=== PATIENT | female | born 1985 | race African-American/Black ===

== ENCOUNTER 2019-03-28 11:45 | Emergency (ER) | payer OTHER, SELFPAY ==
[2019-03-28 12:07] VITALS: BP 148/63; PULSE 84; RESP 20; TEMP 36.6; O2SAT 100
--- NOTE | 2019-03-28 13:02 | ED.URI ---
HPI - URI/Sore Throat General Chief Complaint: Upper Respiratory Infection Stated Complaint: cough/whezzing/diarrhea Source: patient Mode of arrival: ambulatory Limitations: no limitations History of Present Illness HPI Narrative: Patient is a 33-year-old female who presents complaining of nonproductive cough, congestion, wheezing x1 week. 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 Patient denies fever or sore throat. Patient denies taking xubz-bbq-stnbhcu medications. MD elicited complaint: cough and nasal congestion Related Data Home Medications Medication Instructions Recorded Confirmed topiramate 100 mg DAILY 03/28/19 03/28/19 Allergies Allergy/AdvReac Type Severity Reaction Status Date / Time No Known Allergies Allergy Verified 03/28/19 12:11 Review of Systems Review of Systems: Narrative: CONSTITUTIONAL: Denies fever, chills, or sweats. EYES: Denies visual changes, redness, or discharge. ENT: Reports rhinorrhea, congestion, denies sore throat, or otalgia. CARDIOVASCULAR: Denies chest pain, palpitations, or edema. RESPIRATORY: Denies cough and wheezing, denies dyspnea. GASTROINTESTINAL: Denies abdominal pain, nausea, vomiting, or diarrhea. GENITOURINARY: Denies dysuria or hematuria. SKIN: Denies rash or itching. MUSCULOSKELETAL: Denies back pain, joint pain, or myalgia. NEUROLOGIC: Denies headache, numbness, dizziness, or weakness. PSYCHIATRIC: Denies anxiety or depression. [facility] Past Medical History Medical History (Updated 03/28/19 @ 13:08 by AMAN Billy) GERD (gastroesophageal reflux disease) HTN (hypertension) Surgical History Surgical History (Updated 03/28/19 @ 13:04 by AMAN Billy) H/O [facility] Social History Social History (Updated 03/28/19 @ 13:05 by AMAN Billy) Smoking status: Current every day smoker Tobacco type: cigarettes Alcohol intake: never Substance use: never Living arrangements: with family Occupation/Education: occupation Gender identity (if verbalized by the patient): Female Exam Narrative: Exam Narrative: GENERAL: Well-appearing, well-nourished, and in no acute distress. HEAD: Normocephalic, atraumatic. EYES: EOMI. No redness or drainage. Conjunctiva are normal. ENT: Mucous membranes pink and moist. Positive rhinorrhea. TMs normal bilaterally. Throat normal. Uvula midline. NECK: AROM. Supple. No lymphadenopathy. CHEST: No respiratory distress. Expiratory wheeze noted. HEART: Regular rate and rhythm. No murmur appreciated. Normal peripheral pulses. SKIN: Warm, dry, no rash. NEURO: No focal deficits. Alert and oriented x3. Gait steady. PSYCH: Normal affect. No signs of depression or anxiety. Course Vital Signs Vital signs: Vital Signs Temperature 36.6 C 03/28/19 12:07 Pulse Rate 84 03/28/19 12:07 Respiratory Rate 20 03/28/19 12:07 Blood Pressure 148/63 H 03/28/19 12:07 Pulse Oximetry 100 03/28/19 12:07 Temperature 36.6 C 03/28/19 12:07 Pulse Rate 84 03/28/19 12:07 Respiratory Rate 03/28/19 12:07 Blood Pressure 148/63 H 03/28/19 12:07 Pulse Oximetry 100 03/28/19 12:07 MDM - URI/Sore Throat MDM Narrative Medical decision making narrative: Discussed plan of care with patient. Patient appears to have a URI. Patient to be started on Tessalon for cough, pro-air for wheeze and a course of steroids. Patient agreeable with plan of care. Patient is stable for discharge home with outpatient follow-up as needed. Differential Diagnosis Differential diagnosis: Likely upper respiratory infection Critical Care Time Critical Care Time Critical Care Time: No Discharge Plan Discharge Clinical Impression: Upper respiratory infection, Bronchitis Patient Disposition: Home, Self-Care Condition: Stable Instructions: Upper Respiratory Infection (ED), Acute Bronchitis (ED) Prescriptions: New albuterol sulfate [ProAir HFA] 90 mcg/a
== END 2019-03-28 13:17 | disposition home or self-care (01) ==
PROVIDERS: Emergency Provider Nurse Practitioner
DX: J06.9 Acute upper respiratory infection, unspecified (principal); J40 Bronchitis, not specified as acute or chronic; K21.9 Gastro-esophageal reflux disease without esophagitis; I10 Essential (primary) hypertension; F17.210 Nicotine dependence, cigarettes, uncomplicated
CPT/HCPCS: 99203; G0463

== ENCOUNTER 2020-02-28 08:18 | Emergency (ER) | payer OTHER, SELFPAY ==
--- NOTE | 2020-02-28 08:28 | ED.GENADULT ---
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 Lay reports she was cutting meat at work and sliced a piece of her finger off. Denies focal weakness or altered sensation. Denies fever or chills. Denies numbness or tingling or loss of mobility. No foreign body sensation. RIGHT HAND dominant hand. Tetanus NOT up-to-date, will update today. The patient reports she have not been diagnosed with COVID-19. The patient reports she is not waiting for the results of a COVID-19 lab test. The patient reports she do not have weakness or fatigue. The patient reports she do not have a new or worsening cough or shortness of breath. Denies chest pain. The patient reports she do not have any rhinorrhea, congestion, sore throat, loss of taste, nausea, vomiting, abdominal pain, and diarrhea. Tolerating po intake well. Denies recent traveling. Denies concerns for COVID-19 or exposures been home with limited outdoor exposure except for essential household needs, work, and return home. At this time, patient is not suspected of having COVID-19. Some parts of this dictation were generated by voice recognition software and may contain typographical and/or grammatical inaccuracies Related Data Home Medications Medication Instructions Recorded Confirmed amlodipine 02/28/20 buspirone mg 02/28/20 ferrous sulfate mg 02/28/20 losartan 02/28/20 02/28/20 Allergies Allergy/AdvReac Type Severity Reaction Status Date / Time No Known Allergies Allergy Verified 03/28/19 12:11 Review of Systems Review of Systems: Narrative: CONSTITUTIONAL: Denies fever, chills, sweats. EYES: Denies visual changes, redness, discharge. ENT: Denies rhinorrhea, congestion, sore throat, otalgia. CARDIOVASCULAR: Denies chest pain, palpitations, edema. RESPIRATORY: Denies dyspnea, wheezing, cough. GASTROINTESTINAL: Denies abdominal pain, nausea, vomiting, or diarrhea. SKIN: Denies rash or itching. Complains of laceration to 2nd (index) finger on right hand. MUSCULOSKELETAL: Denies acute back pain, joint pain, or myalgia. NEUROLOGIC: Denies numbness or focal weakness. PSYCHIATRIC: Denies anxiety or depression. All other systems reviewed & are unremarkable except as noted in HPI and below. [facility] Past Medical History Medical History (Updated 02/29/20 @ 00:00 by Amol Ac) Anemia Anxiety GERD (gastroesophageal reflux disease) HTN (hypertension) Surgical History Surgical History H/O LEEP Family History Family History (Updated 02/28/20 @ 11:01 by AMAN Daly) Father , Lymphoma Lymphoma Mother , Related to kidney failure and CHF Diabetes mellitus Acute myocardial infarction Social History Social History (Updated 02/28/20 @ 11:02 by AMAN Daly) Smoking packs per day: 0.5 Smoking cigarettes per day: 10.0 Years smoked: 20 Smoking pack-years: 10.00 Smoking status: Current every day smoker Tobacco type: cigarettes Second hand tobacco smoke exposure: No Alcohol intake: never Substance use: never Living arrangements: alone Occupation/Education: occupation Gender identity (if verbalized by the patient): Female Sexual Orientation (if Verbalized by the Patient): Straight or Heterosexual Comments At time of signature, agree with nurse past medical, surgical, social, and family history. There is no relevant family history pertinent to the presenting complaint. Exam Narrative: Exam Narrative: GENERAL: This is a well-nourishe
[2020-02-28 08:36] VITALS: BP 153/113; PULSE 86; RESP 16; TEMP 36.7; O2SAT 100
[2020-02-28] MEDS: TETANUS,DIPHTHERIA,AC PERTUSSIS ADULT (0.5 ML) BOOSTRIX IM (08:45)
[2020-02-28 09:02] VITALS: BP 150/90
== END 2020-02-28 09:17 | disposition home or self-care (01) ==
PROVIDERS: Emergency Provider Nurse Practitioner Family; PCP Internal Medicine
DX: S61.210A Laceration without foreign body of right index finger without damage to nail, initial encounter (principal); W29.0XXA Contact with powered kitchen appliance, initial encounter; Y99.0 Civilian activity done for income or pay; Z23 Encounter for immunization; F17.210 Nicotine dependence, cigarettes, uncomplicated; F41.9 Anxiety disorder, unspecified; K21.9 Gastro-esophageal reflux disease without esophagitis; I10 Essential (primary) hypertension
CPT/HCPCS: 12001; 90471; 90715; 99213; G0463

== ENCOUNTER 2020-03-30 09:10 | Emergency (ER) | payer OTHER, SELFPAY ==
[2020-03-30 09:14] VITALS: BP 167/129; PULSE 83; RESP 16; TEMP 36.8; O2SAT 100
[2020-03-30 09:27] VITALS: BP 167/129; PULSE 83; RESP 16; TEMP 36.8; O2SAT 100
--- NOTE | 2020-03-30 09:53 | ED.URI ---
HPI - URI/Sore Throat General Chief Complaint: Upper Respiratory Infection Stated Complaint: COUGH Source: patient and RN notes reviewed Limitations: no limitations History of Present Illness HPI Narrative: The obese patient, who is a smoker / nondrinker on several meds, presents with cough. 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 She comments she has a couple day worsening at least a couple week history of intermittent cough. No fever, CP, known Covid exposure, S OB, sputum changes, calf pain / edema, loss of taste/smell, sneezing/wheezing- yet she says she can hear forced expiratory sounds sometimes w/ the cough. Upon arrival ancid-mi-edrt testing for Covid is negative, vital signs remarkable for diastolic hypertension; she comments she did not take her blood pressure pills today. She would like a refill of her amlodipine, inhaler. Related Data Home Medications Medication Instructions Recorded Confirmed amlodipine 02/28/20 buspirone mg 02/28/20 ferrous sulfate mg 02/28/20 losartan 02/28/20 02/28/20 albuterol sulfate INHALATION 03/30/20 guaifenesin mg 03/30/20 trazodone 03/30/20 Allergies Allergy/AdvReac Type Severity Reaction Status Date / Time No Known Allergies Allergy Verified 03/28/19 12:11 Review of Systems Review of Systems: Narrative: General/Constitutional: No weight loss,fever Eyes: N0: Redness,discharge Ears/Nose/Throat: No: Epistaxis,ear discharge Respiratory: Denies: Hemoptysis Gastrointestinal: No Vomiting, Bleeding-rectal Skin: No Lumps, eruption Neurologic: No Focal Weakness,Sz Hematologic: Denies: Petechiae/Purpura Psychiatric: No: Suicida ideationl All Other Systems: Reviewed and Negative [facility] Past Medical History Medical History (Updated 03/30/20 @ 17:50 by Hipolito Coy MD) Anemia Anxiety GERD (gastroesophageal reflux disease) HTN (hypertension) Surgical History Surgical History H/O LEEP Family History Family History (Updated 02/28/20 @ 11:01 by AMAN Daly) Father , Lymphoma Lymphoma Mother , Related to kidney failure and CHF Diabetes mellitus Acute myocardial infarction Social History Social History (Updated 02/28/20 @ 11:02 by AMAN Daly) Smoking packs per day: 0.5 Smoking cigarettes per day: 10.0 Years smoked: 20 Smoking pack-years: 10.00 Smoking status: Current every day smoker Tobacco type: cigarettes Second hand tobacco smoke exposure: No Alcohol intake: never Substance use: never Gender identity (if verbalized by the patient): Female Comments At time of signature, agree with nursing past medical, surgical, social and family history. There is no relevant family history pertinent to the presenting complaint Exam Narrative: Exam Narrative: General Appearance: Obese/well nourished, No distress EYE: PERRLA, Conjunctiva clear Ears: External ear normal Nose: Normal nose Mouth/Throat: Normal appearing, Normal lips Neck: Supple Respiratory: Airway patent, No respiratory distress, decreased BS at bases, no wheeze Cardiovascular: distant sounds RRR Abdomen: Soft, Non-tender, Musculoskeletal: Full ROM Skin: Warm, Dry Neurological: A&O x3, CN II-X intact Psychiatric: Normal mood, Normal affect Course Vital Signs Vital signs: Vital Signs Temperature 98.3 F 03/30/20 09:14 Pulse Rate 83 03/30/20 09:14 Respiratory Rate 16 03/30/20 09:14 Blood Pressure 167/129 H 03/30/20 09:14 Pulse Oximetry 100 03/30/20 09:14 Temperature 98.3 F 03/30/20 09:27 Pulse Rate 83 03/30/20 09:27 Respiratory Rate 16 03/30/20 09:27 Blood Pressure 188/131 H 03/30/20 10:15 Pulse Oximetry 100 03/30/20 09:27 MDM - URI/Sore Throat Lab Data Labs: Lab Results 03/30/20 Range/Units 09:24 POC SARS CoV-2 Ag Negative (Negative) Discharge Pl
[2020-03-30 10:15] VITALS: BP 188/131
== END 2020-03-30 10:17 | disposition home or self-care (01) ==
PROVIDERS: Emergency Provider Emergency Medicine; PCP Internal Medicine
DX: R05 Cough (principal); F17.210 Nicotine dependence, cigarettes, uncomplicated; I10 Essential (primary) hypertension; Z91.14 Patient's other noncompliance with medication regimen; Z20.822 Contact with and (suspected) exposure to COVID-19; K21.9 Gastro-esophageal reflux disease without esophagitis; F41.9 Anxiety disorder, unspecified; D64.9 Anemia, unspecified
CPT/HCPCS: 87426; 99213; C9803; G0463

== ENCOUNTER 2020-10-08 10:31 | Emergency (ER) | payer OTHER, SELFPAY ==
--- NOTE | 2020-10-08 10:34 | ED.URI ---
HPI - URI/Sore Throat General Chief Complaint: Upper Respiratory Infection Stated Complaint: CHILLS/COUGH/HOARSE Time Seen by Provider: 10/08/20 10:34 Source: patient and RN notes reviewed History of Present Illness HPI Narrative: Patient is a 35-year-old female who presents the urgent care with complaints of cough and hoarseness. Patient states that she got in a bad argument with someone approximately 2 to 3 weeks ago and was crying all night and that her voice has been hoarse since then. Patient states that she has been drinking warm tea to help with the hoarseness. States that she has had the cough for about 2 weeks as well. Patient states that she wants a rapid Covid test because her girlfriend just tested positive however patient does not report any new Covid symptoms. Patient denies of any nausea, vomiting, body aches, fever, chills or sweats. Patient has had a frequent and recent Covid positive contact. Denies of anyone in the home being sick. Patient is not vaccinated for Covid. No other acute complaints. No acute distress noted. Patient aware of the plan of care. Some parts of this dictation were generated by voice recognition software and may contain typographical and/or grammatical inaccuracies. Related Data Home Medications Medication Instructions Recorded Confirmed amlodipine 02/28/20 buspirone mg 02/28/20 ferrous sulfate mg 02/28/20 losartan 02/28/20 02/28/20 albuterol sulfate INHALATION 03/30/20 guaifenesin mg 03/30/20 trazodone 03/30/20 Allergies Allergy/AdvReac Type Severity Reaction Status Date / Time No Known Allergies Allergy Verified 03/28/19 12:11 Review of Systems Review of Systems: CONSTITUTIONAL: Denies fever, chills, or sweats. EYES: Denies visual changes, redness, or discharge. ENT: Denies rhinorrhea, congestion, sore throat, or otalgia. Reports of hoarseness CARDIOVASCULAR: Denies chest pain, palpitations, or edema. RESPIRATORY: Reports of nonproductive cough without dyspnea GASTROINTESTINAL: Denies abdominal pain, nausea, vomiting, or diarrhea. GENITOURINARY: Denies dysuria or hematuria. SKIN: Denies rash or itching. MUSCULOSKELETAL: Denies back pain, joint pain, or myalgia. NEUROLOGIC: Denies headache, numbness, or weakness. All other systems reviewed are negative, except as documented in HPI. [facility] Past Medical History Medical History (Updated 10/08/20 @ 10:53 by AMAN Fraire) Anemia Anxiety GERD (gastroesophageal reflux disease) HTN (hypertension) Surgical History Surgical History H/O LEEP Family History Family History (Updated 02/28/20 @ 11:01 by AMAN Daly) Father , Lymphoma Lymphoma Mother , Related to kidney failure and CHF Diabetes mellitus Acute myocardial infarction Social History Social History (Updated 02/28/20 @ 11:02 by AMAN Daly) Smoking packs per day: 0.5 Smoking cigarettes per day: 10.0 Years smoked: 20 Smoking pack-years: 10.00 Smoking status: Current every day smoker Tobacco type: cigarettes Second hand tobacco smoke exposure: No Alcohol intake: never Substance use: never Gender identity (if verbalized by the patient): Female Comments At the time of my signature, I reviewed and agree with the nursing past medical, surgical, social, and family history. There is no relevant family history pertinent to the patient complaint. Exam Narrative: GENERAL: This is a well-nourished, well-developed patient, morbidly obese HEAD: normocephalic, atraumatic. EYES: PERRL. Sclera clear/white. Vision is grossly intact. EARS: External ears normal, auditory canals clear and without drainage, TMs normal without perforation. Hearing grossly intact. NOSE: External nose normal with no obvious nasal discharge, nares without redness, no rhinorrhea. THROAT: Mucous membranes moist, posterior pharynx clear. Moderate er
[2020-10-08 10:44] VITALS: BP 160/109; PULSE 95; RESP 16; TEMP 36.3; O2SAT 100
[2020-10-08 10:45] VITALS: BP 160/109; PULSE 95; RESP 16; TEMP 36.3; O2SAT 100
[2020-10-10 01:36] LABS: SARS-CoV-2 RNA PCR Negative
== END 2020-10-08 11:05 | disposition home or self-care (01) ==
PROVIDERS: Emergency Provider Nurse Practitioner Family; PCP Internal Medicine
DX: Z20.822 Contact with and (suspected) exposure to COVID-19 (principal); F17.210 Nicotine dependence, cigarettes, uncomplicated; K21.9 Gastro-esophageal reflux disease without esophagitis; I10 Essential (primary) hypertension
CPT/HCPCS: 99213; C9803; G0463; U0003; U0005

== ENCOUNTER 2020-11-21 10:48 | Emergency (ER) | payer OTHER, SELFPAY ==
--- NOTE | 2020-11-21 10:54 | ED.FEMALEGU ---
HPI - Female Genitourinary General Chief complaint: Urogenital-Female Stated complaint: POS UTI Time Seen by Provider: 11/21/20 10:54 Source: patient and RN notes reviewed History of Present Illness HPI Narrative: Patient is a 35-year-old female who presents the urgent care with complaints of urinary frequency for the last week and a half. Patient states that a couple months or weeks ago she was prescribed Macrobid for a UTI and never picked it up . Patient states that she now has a little bit of nausea and diarrhea. Patient reports of wanting a Covid swab while she is here . Patient denies of any fevers. Denies of any use of udoi-ero-hiqnvga medication for her symptoms. No acute distress noted. Patient aware of the plan of care. Some parts of this dictation were generated by voice recognition software and may contain typographical and/or grammatical inaccuracies. Related Data Home Medications Medication Instructions Recorded Confirmed amlodipine 02/28/20 buspirone mg 02/28/20 ferrous sulfate mg 02/28/20 losartan 02/28/20 02/28/20 albuterol sulfate INHALATION 03/30/20 guaifenesin mg 03/30/20 trazodone 03/30/20 Allergies Allergy/AdvReac Type Severity Reaction Status Date / Time No Known Allergies Allergy Verified 11/21/20 11:11 Review of Systems Review of Systems: CONSTITUTIONAL: Denies fever, chills, or sweats. EYES: Denies visual changes, redness, or discharge. ENT: Denies rhinorrhea, congestion, sore throat, or otalgia. CARDIOVASCULAR: Denies chest pain, palpitations, or edema. RESPIRATORY: Denies cough or dyspnea. GASTROINTESTINAL: Denies abdominal pain, nausea, vomiting, or diarrhea. GENITOURINARY: Reports of urinary frequency SKIN: Denies rash or itching. MUSCULOSKELETAL: Denies back pain, joint pain, or myalgia. NEUROLOGIC: Denies headache, numbness, or weakness. All other systems reviewed are negative, except as documented in HPI. [facility] Past Medical History Medical History (Updated 11/21/20 @ 11:31 by AMAN Fraire) Anemia Anxiety GERD (gastroesophageal reflux disease) HTN (hypertension) Surgical History Surgical History H/O LEEP Family History Family History (Updated 02/28/20 @ 11:01 by AMAN Daly) Father , Lymphoma Lymphoma Mother , Related to kidney failure and CHF Diabetes mellitus Acute myocardial infarction Social History Social History (Updated 02/28/20 @ 11:02 by AMAN Daly) Smoking packs per day: 0.5 Smoking cigarettes per day: 10.0 Years smoked: 20 Smoking pack-years: 10.00 Smoking status: Current every day smoker Tobacco type: cigarettes Second hand tobacco smoke exposure: No Alcohol intake: never Substance use: never Gender identity (if verbalized by the patient): Female Sexual Orientation (if Verbalized by the Patient): Straight or Heterosexual Comments At the time of my signature, I reviewed and agree with the nursing past medical, surgical, social, and family history. There is no relevant family history pertinent to the patient complaint. Exam Narrative: GENERAL: This is a well-nourished, well-developed patient, in no apparent distress. HEAD: normocephalic, atraumatic. EYES: PERRL. Sclera clear/white. Vision is grossly intact. EARS: External ears normal NOSE: External nose normal with no obvious nasal discharge, nares without redness, no rhinorrhea. THROAT: Mucous membranes moist NECK: Neck supple CARDIOVASCULAR: Regular rate and rhythm without murmurs, gallops, or rubs. RESPIRATORY: Clear to auscultation. Breath sounds equal bilaterally. No wheezes, rales, or rhonchi. GASTROINTESTINAL: Abdomen soft, non-tender, nondistended. SKIN: warm, intact with no suspicious lesions or rash, good texture and turgor. NEURO: awake, alert, and oriented to person, place and time. There were no obvious focal neurologic abnormali
[2020-11-21 11:13] VITALS: BP 163/107; PULSE 100; RESP 18; TEMP 36.6; O2SAT 100
== END 2020-11-21 11:48 | disposition home or self-care (01) ==
PROVIDERS: Emergency Provider Nurse Practitioner Family; PCP Internal Medicine
DX: N39.0 Urinary tract infection, site not specified (principal); Z20.822 Contact with and (suspected) exposure to COVID-19; F17.210 Nicotine dependence, cigarettes, uncomplicated; D64.9 Anemia, unspecified; K21.9 Gastro-esophageal reflux disease without esophagitis; I10 Essential (primary) hypertension
CPT/HCPCS: 81003; 87086; 87088; 99213; G0463

== ENCOUNTER 2022-03-06 12:33 | Outpatient (CLI) | payer OTHER, SELFPAY ==
--- NOTE | 2022-03-06 | ECHO_ITS ---
Patient Info Name: Lay Seay Age: 36 years : 1985 Gender: Female Ht: 67 in Wt: 360 lbs BSA: 2.88 m2 HR: 71 bpm BP: 163 / 113 mmHg Technical Quality: Poor Exam Date: 03/06/2022 1:04 PM Exam Location: [facility] Patient Status: Outpatient Admit Date: 03/06/2022 Staff Ordering Physician: Minh Donohue MD Laser Print Operator: Renate Arthur RCS Attending Provider: Minh Donohue MD Referring Physician: Charanjit BROWN; Exam Type: CA echo doppler color flow Study Info Indications - DYSPNEA Complete two-dimensional, color flow and Doppler transthoracic echocardiogram is performed. Reason for Poor Study: patient body habitus Summary 1. Complete two-dimensional, color flow and Doppler transthoracic echocardiogram is performed. 2. Left ventricular chamber dimension is normal. 3. Left ventricular systolic function is normal, estimated at 60-65%. 4. There is mildly increased left ventricular wall thickness. 5. The left ventricular diastolic function is grade I diastolic dysfunction. 6. E/e' 7 is not elevated. 7. Mild pulmonary hypertension, estimated pulmonary arterial systolic pressure is 40 mmHg. Left Ventricle E/e' 7 is not elevated. Left ventricular chamber dimension is normal. Left ventricular systolic function is normal, estimated at 60-65%. There is mildly increased left ventricular wall thickness. The left ventricular diastolic function is grade I diastolic dysfunction. Right Ventricle Right ventricular chamber dimension is normal. Right ventricular systolic function is normal. Left Atria Left atrial chamber dimension is normal. Right Atria Right atrial chamber dimension is normal. Aortic Valve The aortic valve is probable trileaflet. There is no aortic valve stenosis. There is no aortic valve regurgitation. Pulmonic Valve There is no pulmonic regurgitation. Mitral Valve There is no mitral valve stenosis. There is no mitral valve regurgitation. Tricuspid Valve There is no tricuspid valve regurgitation. Mild pulmonary hypertension, estimated pulmonary arterial systolic pressure is 40 mmHg. Pericardium/Pleural There is no pericardial effusion. Inferior Vena Cava Normal inferior vena cava with >50% collapse upon inspiration consistent with normal right atrial pressure, 5 mmHg. Aorta The aortic root size at the sinus of Valsalva is normal. Left Ventricular Outflow Tract Name Value Normal LVOT 2D LVOT Diameter 2.1 cm LVOT Doppler LVOT Peak Gradient 5 mmHg LVOT Mean Gradient 3 mmHg LVOT VTI 20 cm LVOT VTI/AV VTI Ratio 0.9 LVOT Stroke Volume 72 ml LVOT CO 17.3 l/min LVOT CI 6.0 l/min/m2 Pulmonic Valve Name Value Normal PV Doppler
--- NOTE | 2022-03-06 16:42 | WPDPFTINT ---
PFT Procedure Performed PFT Procedure Performed Plethysmography (Lung Vol) Diffusing Cap (DLCO) Flow Vol Loop Spirometry w/o Bronchodil PFT Interpretation This is a pulmonary function test with spirometry, plethysmography and diffusing capacity. The test was performed and results interpreted in accordance with the 2019 and 2005 ATS/ERS Task Force guidelines respectively using the Global Lung Function Initiative-2012 reference equations. Patient demonstrated good effort and cooperation. Reproducibility criteria were met. The quality of the spirometry maneuver was Grade B. Findings: Spirometry: There is decreased maximal expiratory airflow at all lung volumes. The FVC is 3.02 L, 85% predicted. The FEV1 is 2.03 L, 69% predicted. The FEV1: FVC ratio 67%. Plethysmography: The total lung capacity is 5.51 L, 114% predicted. The functional residual capacity is 2.56 L, 90% predicted. The residual volume is 2.49 L, 162% predicted. Diffusing capacity: The diffusing capacity unadjusted for hemoglobin and carboxyhemoglobin is 25.4, 99% predicted. The diffusing capacity adjusted for alveolar volume is 6.02, 129% predicted. Impression: There is a moderate obstructive abnormality. The increase in residual volume is consistent with air trapping from an obstructive abnormality. The diffusing capacity unadjusted for hemoglobin is normal and is increased when adjusted for alveolar volume. There are no prior studies for comparison
== END 2022-03-06 12:34 | disposition home or self-care (01) ==
LOC: ANHCARD 12:34
PROVIDERS: PCP Internal Medicine; Visit Provider Internal Medicine
DX: R06.00 Dyspnea, unspecified (principal); I27.20 Pulmonary hypertension, unspecified
CPT/HCPCS: 93306; 94375; 94726; 94729

== ENCOUNTER 2023-04-09 16:09 | Outpatient (CLI) | payer OTHER, SELFPAY ==
--- NOTE | ~2023-04-09 | XR_ITS ---
EXAM: XR_[id number]_CR, XR_KNEE1-2VLT_CR DATE: 04/09/2023 16:29 HISTORY: KNEE PAIN, UNSPECIFIED . COMPARISON: None available. FINDINGS: Normal mineralization. No fracture or dislocation. No lytic or blastic lesion. Moderate bi lateral medial joint space narrowing. Bilateral tricompartmental osteophytosis, moderate-severe in th e left knee and mild in the right knee. Small bilateral knee joint fluid collections. No erosion or p eriosteal change. Soft tissues within normal limits. IMPRESSION: Bilateral knee tricompartmental osteoarthritis, moderate-severe in the left knee and mode rate in the medial compartment of the right knee. Small bilateral knee joint effusions. Reviewed, dictated and finalized at location K. DING MACHINE OPERATOR IMPRESSION: Bilateral knee tricompartmental osteoarthritis, moderate-severe in the left knee and moderate in the medial compartment of the right knee. Small b ilateral knee joint effusions.
== END 2023-04-09 16:10 | disposition home or self-care (01) ==
LOC: ANHIMG 16:13
PROVIDERS: PCP Internal Medicine; Visit Provider Internal Medicine
DX: M17.0 Bilateral primary osteoarthritis of knee (principal)
CPT/HCPCS: 73560

== ENCOUNTER 2023-08-24 11:39 | Emergency (ER) | payer OTHER, SELFPAY ==
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
[2023-08-24 11:44] VITALS: BP 122/74; PULSE 98; RESP 16; TEMP 36.4; O2SAT 100
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
== END 2023-08-25 02:58 | disposition home or self-care (01) ==
PROVIDERS: Emergency Provider Emergency Medicine; PCP Internal Medicine
DX: S39.012A Strain of muscle, fascia and tendon of lower back, initial encounter (principal); S16.1XXA Strain of muscle, fascia and tendon at neck level, initial encounter; I10 Essential (primary) hypertension; K21.9 Gastro-esophageal reflux disease without esophagitis; F41.9 Anxiety disorder, unspecified; F17.210 Nicotine dependence, cigarettes, uncomplicated; Z79.899 Other long term (current) drug therapy; V43.62XA Car passenger injured in collision with other type car in traffic accident, initial encounter
CPT/HCPCS: 72125; 72131; 81025; 99284

== ENCOUNTER 2023-09-17 09:07 | Outpatient (CLI) | payer OTHER, SELFPAY ==
--- NOTE | 2023-09-17 | ECG_ITS ---
Test Date: 2023-09-17 10:26:37 Measurements Intervals [place] Rate: 66 P: 34 DC: 164 QRS: 25 QRSD: 98 T: 31 QT: 404 QTc: 425 Interpretive Statements SINUS RHYTHM WITH OCCASIONAL VENTRICULAR PREMATURE COMPLEXES LOW QRS VOLTAGE IN PRECORDIAL LEADS BORDERLINE ECG No previous ECG available for comparison Electronically Signed On 09-17-2023 11:06:31 CDT by Elio Zheng D.O.
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
[2023-09-17 10:17] LABS: Basophils Absolute Auto 0.1 K/mm3 (0.0-0.1); Basophils Percent Auto 0.7 % (0.2-1.2); Eosinophils Absolute Auto 0.2 K/mm3 (0-0.3); Eosinophils Percent Auto 1.9 % (0-4.4); Hematocrit 42.7 % (37.0-47.0); Hemoglobin 13.1 g/dL (12.0-15.0); Immature Granulocyte Absolute 0.02 K/mm3 (0.00-0.031); Immature Granulocyte Percent A 0.2 % (0-0.5); Lymphocytes Absolute Auto 2.31 K/mm3 (0.9-3.2); Lymphocytes Percent Auto 27.4 % (18.3-44.2); Mean Corpuscular HGB Conc 30.7 g/dl (32-36); Mean Corpuscular Hemoglobin 25.6 pg (26-34); Mean Corpuscular Volume 83.6 fl (80-100); Monocytes Absolute Auto 0.6 K/mm3 (0.1-0.6); Monocytes Percent Auto 6.5 % (2.6-8.5); Neutrophils Absolute Auto 5.3 K/mm3 (1.3-6.7); Neutrophils Percent Auto 63.3 % (45.5-73.1); Platelet Count Result 234 k/mm3 (150-375); Red Blood Count 5.11 M/mm3 (4.2-5.4); White Blood Count 8.4 K/mm3 (4.5-10.0)
[2023-09-17 10:26] LABS: INR 0.9; Prothrombin Time 12.7 Seconds (11.1-14.7)
[2023-09-17 10:27] LABS: Partial Thromboplastin Time 29.4 Seconds (22.3-36.8)
[2023-09-17 10:33] LABS: Alanine Aminotransferase 17 U/L (6-35); Albumin Level 4.8 g/dL (3.5-5.1); Alkaline Phosphatase 60 U/L (38-126); Anion Gap 12 mmol/L (4-12); Aspartate Amino Transferase 20 U/L (14-36); Bilirubin,Total 0.6 mg/dL (0.2-1.3); Blood Urea Nitrogen 21 mg/dL (7-17); Calcium 9.6 mg/dL (8.4-10.2); Carbon Dioxide 25 mmol/L (22-30); Chloride 101 mmol/L (98-107); Cholesterol 204 mg/dL (0-200); Estimated Glomerular Filt Rate > 60; Glucose 84 mg/dL (65-110); HDL Direct 75 mg/dL; Magnesium 1.9 mg/dL (1.6-2.3); Potassium 3.1 mmol/L (3.4-5.0); Sodium 138 mmol/L (137-145); Triglycerides 105 mg/dL (<150)
[2023-09-17 10:44] LABS: LDL Cholesterol Direct 79 mg/dL; Parathyroid Intact 61.4 pg/mL (7.5-53.5)
[2023-09-17 11:04] LABS: Thyroid Stimulating Hormone 0.696 uIU/mL (0.465-4.680)
[2023-09-17 11:12] LABS: Iron 97 ug/dL (37-170)
[2023-09-17 11:18] LABS: Hemoglobin A1C 5.5 % (<5.7)
[2023-09-17 11:21] LABS: Vitamin D 25 Hydroxy 37.2 ng/mL
[2023-09-17 11:28] LABS: Percent Iron Saturation 28 % (20-50)
[2023-09-17 11:39] LABS: Folic Acid > 20.0 ng/mL (2.76->20)
[2023-09-17 11:56] LABS: Ferritin 8.56 ng/mL (6.24-137)
[2023-09-19 13:04] LABS: Vitamin B1 13 nmol/L (8-30)
== END 2023-09-17 09:08 | disposition home or self-care (01) ==
PROVIDERS: PCP Internal Medicine
DX: E66.01 Morbid (severe) obesity due to excess calories (principal); Z01.818 Encounter for other preprocedural examination; R94.31 Abnormal electrocardiogram [ECG] [EKG]
CPT/HCPCS: 36415; 71046; 80053; 80061; 82306; 82607; 82728; 82746; 83036; 83540; 83550; 83735; 83970; 84425; 84443; 85025; 85610; 85730; 93005

== ENCOUNTER 2023-09-24 14:04 | Emergency (ER) | payer OTHER, SELFPAY ==
[2023-09-24 14:27] VITALS: BP 141/87; PULSE 78; RESP 18; TEMP 36.3; O2SAT 99
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
[2023-09-24 17:17] VITALS: BP 143/99; PULSE 80; RESP 15; TEMP 36.8; O2SAT 99
== END 2023-09-24 17:19 | disposition home or self-care (01) ==
PROVIDERS: Emergency Provider Emergency Medicine; PCP Internal Medicine
DX: S01.511A Laceration without foreign body of lip, initial encounter (principal); S00.83XA Contusion of other part of head, initial encounter; S02.5XXA Fracture of tooth (traumatic), initial encounter for closed fracture; F17.210 Nicotine dependence, cigarettes, uncomplicated; D64.9 Anemia, unspecified; F41.9 Anxiety disorder, unspecified; K21.9 Gastro-esophageal reflux disease without esophagitis; I10 Essential (primary) hypertension; W20.8XXA Other cause of strike by thrown, projected or falling object, initial encounter
CPT/HCPCS: 12011; 99282

== ENCOUNTER 2023-10-06 07:56 | Outpatient (CLI) | payer OTHER, SELFPAY ==
[2023-10-12 08:29] LABS: Reference Lab Test Name Nicotine Metab
== END 2023-10-06 07:57 | disposition home or self-care (01) ==
PROVIDERS: PCP Internal Medicine; Visit Provider Nurse Practitioner Family
DX: Z87.891 Personal history of nicotine dependence (principal)
CPT/HCPCS: 36415

== ENCOUNTER 2023-10-09 08:11 | Outpatient (CLI) | payer OTHER, SELFPAY ==
[2023-10-09 09:12] LABS: Alveolar/Arterial O2 Gradient 15.9 mmHg; Base Excess ABG -0.4 mEq/l (+/-2.0); Carboxyhemoglobin 0.5 % THb (0-2.0); Fractional Inspired Oxygen 21 %; HCO3 ABG 22.9 mEq/l (22.0-26.0); Methemoglobin ABG 0.3 %THb (0-1.5); Oxygen Content ABG 16.7 %vol (16.0-22.0); Oxygen Saturation ABG 97.6 % (95.0-100.0); Oxyhemoglobin 96.7 % THb (90.0-100.0); PCO2 ABG 33.3 mmHg (35.0-45.0); PO2 FiO2 Ratio Arterial Blood 4.48 %; Reduced Hemoglobin 2.5 %THb (0-5.0); Total Hemoglobin 12.2 g/dL (12.0-18.0); pH ABG 7.456 (7.350-7.450)
[2023-10-09 09:13] LABS: Device ROOM AIR; Modified Allen's Test Pass; Site Drawn RIGHT BRACHIAL
--- NOTE | 2023-10-09 11:57 | PCRCNOTE ---
GILLIAN FAXED TO ORDERING DOC.
== END 2023-10-09 08:12 | disposition home or self-care (01) ==
PROVIDERS: PCP Internal Medicine
DX: G47.30 Sleep apnea, unspecified (principal)
CPT/HCPCS: 36600; 82375; 82805; 83050

== ENCOUNTER 2023-10-10 08:29 | Outpatient (CLI) | payer OTHER, SELFPAY ==
--- NOTE | 2023-10-11 13:20 | P.PCNPFT_ITS ---
PFT Procedure Performed PFT Procedure Performed Plethysmography (Lung Vol) Diffusing Cap (DLCO) Flow Vol Loop Spirometry w/o Bronchodil PFT Interpretation DOS: 10/10/2023 REQUESTING: Crystal Hernandez APRN REASON FOR TESTING: Sleep apnea PULMONARY FUNCTION TESTS Repeatability of spirometry FEV1 maneuver is Grade B. Spirometry: The pre-bronchodilator FEV1 is 2.11 L, 73% predicted, below normal. The pre-bronchodilator FVC is 3.18 L, 90% predicted, normal. The FEV1/FVC ratio is 66%, decreased, consistent with airflow obstruction. No bronchodilator was administered. Lung volumes: The total lung capacity is 6.14 L, 127% predicted, increased consistent with hyperinflation. The residual volume is 2.50 L, 159% predicted, increased, consistent with air trapping. The RV/TLC is 41%, upper limit of normal. Diffusion: DLCO is 22.4, 88%, normal. The DLCO/VA is 5.87, 126%, normal. Flow volume loop: The flow volume loop is normal. IMPRESSION: This study shows a mild to moderate obstructive ventilatory impairment, hyperinflation, air trapping with normal diffusion. No bronchodila tor was administered. A prior PFT from 03/06/2022 shows similar results for spirometry. The previous FEV1 was 2.03 L, and currently it is 2.11 L. The patient has hyperinflation which is new. Air trapping is still present. Diffusing capacity is normal. New hyperinflation suggests progression of her obstructive lung disease. Shea Campos MD
== END 2023-10-10 08:30 | disposition home or self-care (01) ==
LOC: ANHPFT 08:30
PROVIDERS: PCP Internal Medicine; Visit Provider Nurse Practitioner Family
DX: G47.30 Sleep apnea, unspecified (principal); R94.2 Abnormal results of pulmonary function studies
CPT/HCPCS: 94375; 94726; 94729

== ENCOUNTER 2023-11-01 08:50 | Outpatient (CLI) | payer OTHER, SELFPAY ==
[2023-11-05 07:33] LABS: Reference Lab Test Name Nicotine and Metab
== END 2023-11-01 08:51 | disposition home or self-care (01) ==
LOC: ANHLAB 08:55
PROVIDERS: PCP Internal Medicine; Visit Provider Nurse Practitioner Family
DX: Z12.2 Encounter for screening for malignant neoplasm of respiratory organs (principal); Z87.891 Personal history of nicotine dependence
CPT/HCPCS: 36415

== ENCOUNTER 2023-11-13 07:39 | Outpatient (CLI) | payer OTHER, SELFPAY ==
--- NOTE | ~2023-11-13 | NM_ITS ---
EXAMINATION: NM noelle stress w perfusion DATE: 11/13/2023 10:04 INDICATION: Encounter for cardiovascular examination. TECHNIQUE: Rest images were obtained following intravenous administration of 10.9 mCi Tc99m tetrofosm in (Myoview). The patient was infused intravenously with Lexiscan (regadenoson). Then, 32.4 mCi Tc99m tetrofosmin (Myoview) was administered intravenously, and supine and prone stress images were obtain ed. Data was reconstructed into short axis and horizontal and vertical long axis SPECT images. Gated SPECT images were also obtained. COMPARISON: None. FINDINGS: There is no definite reversible or fixed perfusion abnormality to suggest ischemia or infar ction. There is no segmental wall motion abnormality. Left ventricular ejection fraction measures > 70%. IMPRESSION: 1. No definite ischemia or infarct. 2. Normal left ventricular ejection fraction measuring >70%. Reviewed, dictated and finalized at location A.
--- NOTE | 2023-11-13 07:59 | EST_ITS ---
Patient Info Name: Lay Seay Age: 38 years : 1985 Gender: Female Ht: 67 in Wt: 374 lbs BSA: 2.94 m2 HR: 65 bpm BP: 119 / 89 mmHg Exam Date: 11/13/2023 8:55 AM Exam Location: [facility] Patient Status: Outpatient Admit Date: 11/13/2023 Staff Ordering Physician: Elio Zheng DO Attending Provider: Elio Zheng DO Exercise Technologist: Alice Watts CT Exercise Physician: Elio Zheng DO Exam Type: CA stress noelle w NM Study Info A regadenoson stress test was performed. Summary 1. 1. Negative lexiscan stress test for ischemic ST changes by ECG criteria. 2. 2. Stable hemodynamics throughout the test. 3. 3. Nuclear scan to follow and will be reported separately. Please correlate with it. 4. 4. Patient informed of the above results. Protocol: Lexiscan Stress ECG Details Stage: REST Duration (min): 1 min : 6 sec HR (bpm): 66 SBP (mmHg): 119 DBP (mmHg): 89 Stage: REST Duration (min): 7 min : 0 sec HR (bpm): 68 SBP (mmHg): 119 DBP (mmHg): 89 Stage: STAGE 1 Duration (min): 1 min : 0 sec HR (bpm): 93 SBP (mmHg): 124 DBP (mmHg): 90 Stage: RECOVERY Duration (min): 1 min : 0 sec HR (bpm): 92 SBP (mmHg): 124 DBP (mmHg): 90 Stage: RECOVERY Duration (min): 2 min : 0 sec HR (bpm): 88 SBP (mmHg): 124 DBP (mmHg): 90 Stage: RECOVERY Duration (min): 3 min : 0 sec HR (bpm): 85 SBP (mmHg): 113 DBP (mmHg): 88 Stage: RECOVERY Duration (min): 3 min : 39 sec HR (bpm): 83 SBP (mmHg): 113 DBP (mmHg): 88 Rest HR: 68 bpm Peak HR: 93 bpm Rest Sys BP: 119 mmHg Peak Sys BP: 124 mmHg Max Pred HR: 182 bpm % Max Pred HR: 51 % Target HR: 155 bpm Max RPP: 11,532 bpm*mmHg Termination Reason: Completed protocol Cardiac Symptoms: Shortness of breath Total Time: 1 min : 0 sec Rest Saavedra BP: 89 mmHg Peak Saavedra BP: 90 mmHg Total Dose: 0.4 mg Resting ECG Sinus rhythm. Stress ECG No ST changes. Arrhythmias None. Report Signatures
== END 2023-11-13 07:40 | disposition home or self-care (01) ==
PROVIDERS: PCP Internal Medicine; Visit Provider Internal Medicine Cardiovascular Disease
DX: Z01.810 Encounter for preprocedural cardiovascular examination (principal)
CPT/HCPCS: 78452; 93017; A9502; J2785

== ENCOUNTER 2023-12-15 09:04 | Outpatient (CLI) | payer OTHER, SELFPAY | END 2023-12-15 09:05 | disposition home or self-care (01) | LOC: ANHLAB 09:08 | PROVIDERS: PCP Internal Medicine; Visit Provider Nurse Practitioner Family | DX: Z87.891 Personal history of nicotine dependence (principal) | CPT/HCPCS: 36415 ==

== ENCOUNTER 2024-06-10 07:28 | Outpatient (CLI) | payer OTHER, SELFPAY ==
--- OUTSIDE RECORDS SUMMARY | 2024-06-10 07:33 | XMS_ITS | Clinical Summary ---
Author Organization [facility] Address [address] [address] Care Team Providers Care Police Artist Name Role Phone Minh Donohue MD Primary Care Provider [phone] Source Comments [facility],non-owned Affiliates and Associated Physician Practices is amultiple site organization consisting of ambulatory clinics and hospital sitesin [place], [place], [place] and [place]. This disclosure is being madepursuant to the Care Everywhere program and may not contain all information available regarding this patient. Last updated 17.[facility] Allergies No known active allergies Medications * Be aware that medications may not be up to date on this document. Alwaysverify current medications with the patient. albuterol HFA (Proventil; Ventolin; Proair) 108 (90 Base) MCG/ACT inhaler 4 Active vitamin D, ergocalciferol, (Drisdol) 1.25 MG (96355 UT) capsule Take 1 (one) capsule by mouth every 7 days 4 Active hydrOXYzine pamoate (Vistaril) 50 MG capsule 3 Active topiramate (Topamax) 100 MG tablet Take 1 (one) tablet by mouth at bedtime 4 Active prazosin (Minipress) 2 MG capsule Take 1 (one) capsule by mouth 3 times daily 4 Active multivitamin daily (One A Day) tablet Take 1 (one) tablet by mouth once daily Baratric with iron 4 Active busPIRone (Buspar) 30 MG tablet Take 1 (one) tablet by mouth once daily 4 Active acetaminophen (TYLENOL) 500 MG tabletIndicatio ns:Bariatric surgery status Pt is to take 2 tabs po every 8 hours for basal pain. May take additional 1 tab twice daily if needed. Pt to not exceed 4000mg daily. 40 tablet 4 Active Calcium Citrate-Vitamin D (CALCIUM CITRATE + D PO) Take 600 mg by mouth 2 times daily Active omeprazole (PriLOSEC) 40 MG capsuleIndicati ons:Bariatric surgery status Take 1 (one) capsule by mouth daily before breakfast 30 capsule 3 5 025 Active docusate sodium (Colace) 100 MG capsuleIndicati ons:Bariatric surgery status Take 1 (one) capsule by mouth 2 times daily 60 capsule 3 5 Active FeroSul 325 (65 Fe) MG tablet 4 025 Discontin ued(List Clean-Up) losartan (Cozaar) 100 MG tablet as needed 4 025 Discontin ued(List Clean-Up) amLODIPine (Norvasc) 10 MG tablet as needed 4 025 Discontin ued(List Clean-Up) Probiotic Product (Yuanfen~Flow™) capsuleIndicati ons:Bariatric surgery status Take 1 (one) capsule by mouth once daily 30 capsule 3 4 025 Discontin ued(List Clean-Up) omeprazole (PriLOSEC) 40 MG capsuleIndicati ons:Bariatric surgery status Take 1 (one) capsule by mouth daily before breakfast 30 capsule 3 4 025 Discontin ued(Reord er) docusate sodium (Colace) 100 MG capsuleIndicati ons:Bariatric surgery status Take 1 (one) capsule by mouth 2 times daily 30 capsule 4 025 Discontin ued(Reord er) ursodiol (Actigall) 300 MG capsuleIndicati ons:Post op laproscopic sleeve gastrectomy Take 1 (one) capsule by mouth 2 times daily for 90 days Do Not start until 1 week post op. Reasons: Post op laproscopic sleeve gastrectomy 60 capsule 2 4 025 Discontin ued(Tx Complete) Blood Pressure Monitor MISC Use 1 Each once daily Check your blood pressure daily before taking your blood pressure medication Keep a log of your readings Do not take your blood pressure medicine if your reading is less than 120/80 5 025 Discontin ued(List Clean-Up) chlorhexidine (Peridex) 0.12 % solution RINSE AND SPIT 15ML BY MOUTH FOR 30 SECONDS EVERY 12 HOURS FOR 7 DAYS 5 025 Discontin ued(Tx Complete) Active Problems Problem Noted Date Diagnosed Date Morbid obesity 03/04/2024 Hiatal hernia 03/04/2024 Sleep apnea 09/04/2023 High blood pressure 09/04/2023 Acid reflux disease 09/04/2023 Joint pain 09/04/2023 Encounters Date Type Department Care Team Description 06/09/2024 9:00 AM CDT Video Visit [facility] [address] [place] [address] Rabia Roberts, FARM MACHINERY MECHANIC-PULLER OVER Status post laparoscopic sleeve gastrectomy 06/09/2024 8:00 AM CDT Video Visit [facility] [address] [place] [phone] Rabia Roberts, FARM MACHINERY MECHANIC-PULLER OVER Morbid obesity (HCC) ; Status post laparoscopic sleeve gastrectomy; Bariatric surgery status 04/10/2024 1:00 PM FRONT OFFICE AGENT Video Visit [facility] [address] [place] [address] April Rendon APRN-PULLER OVER Status post laparoscopic sleeve gastrectomy ; Morbid obesity with BMI of 50.0-59.9, adult 04/08/2024 11:30 AM FRONT OFFICE AGENT Clinical Support [facility] [address] [place] [phone] Status post laparoscopic sleeve gastrectomy 03/18/2024 9:45 AM FRONT OFFICE AGENT Video Visit [facility] [address] [place] [phone] Status post laparoscopic sleeve gastrectomy 03/13/2024 8:15 AM FRONT OFFICE AGENT Video Visit [facility] [address] [place] [phone] Carolin Avalos MD Status post laparoscopic sleeve gastrectomy from Last 3 Months Family History Medical History Relation Name Comments Lymphoma Father Diabetes; unknown type Mother Heart Failure Mother Relation Name Status Comments Father Mother Social History Tobacco Use Types Packs/Day Years Used Date Smoking Tobacco: Former Cigarettes Q uit: 09/03/2023 Smokeless Tobacco: Never Tobacco Cessation:Counseling Given: Not Answered Alcohol Use Standard Drinks/Week Comments Not Currently 0 (1 standard drink = 0.6 oz pur e alcohol) clean for 1 year AUDIT-C Answer Date Recorded Q1: How often do you have a drink containing alcohol? Never 03/04/2024 Q2: How many drinks containi ng alcohol do you have on a typical day when you are drinking? Patient does not drink Q3: How often do you have si x or more drinks on one occasion? Never 03/04/2024 PHQ-2 Answer Date Recorded Patient Health Questionnaire-2 Score 0 06/09/2024 Comments Unknown Sex and Gender Information Value Date Recorded Sex Assigned at Not on file Legal Sex Female 10:03 AM FRONT OFFICE AGENT Gender Identity Not on file Sexual Orientation Not on file Last Filed Vital Signs Vital Sign Reading Time Taken Comments Blood Pressure 157/83 03/05/2024 12:36 PM FRONT OFFICE AGENT Pulse 91 03/05/2024 12:36 PM FRONT OFFICE AGENT Temperature 37.1 C (98.8 F) 03/05/2024 12:36 PM FRONT OFFICE AGENT Respiratory Rate 17 03/05/2024 12:34 PM FRONT OFFICE AGENT Oxygen Saturation 99% 03/05/2024 8:05 AM FRONT OFFICE AGENT Inhaled Oxygen Concentration - - Weight 145.2 kg (320 lb) 06/09/2024 8:00 AM CDT Height 170.2 cm (5' 7.01 ) 06/09/2024 8:00 AM CD T Body Mass Index 50.11 06/09/2024 8:00 AM CDT Plan of Treatment Upcoming Encounters Date Type Department Care Team (Late st Contact Info) Description 09/04/2024 11:00 AM CDT Video Visit [facility] [address] [place] [phone] 09/04/2024 11:30 AM CDT Video Visit [facility] [address] [place] [phone] April Rendon APRN-KAMILLA [address] [place] [address] 03/06/2025 11:00 AM FRONT OFFICE AGENT Clinical Support [facility] [address] [place] [phone] 03/06/2025 11:30 AM FRONT OFFICE AGENT Office Visit [facility] [address] [place] [phone] Rabia Roberts, FARM MACHINERY MECHANIC-PULLER OVER [address] [place], [place] [address] Health Maintenance Due Date Last Done Comments PAP SMEAR 1985 HIV SCREENING 2000 HEPATITIS C SCREENING 05/04/2003 DTAP/TDAP/TD VACCINES (1 - Tdap) 2004 HEPATITIS B VACCINE (1 of 3 - 19+ 3-dose series) 2004 COVID-19 VACCINE ( - 2023-2 5 season) 2023 INFLUENZA VACCINE (Season Ended) 2024 ZOSTER VACCINE (1 of 2) 05/09/2035 DEPRESSION SCREENING Completed 03/13/2024, 09/13/2023 HIB VACCINE Aged Out No longer eligi ble based on patient's age to complete this topic HPV VACCINE Aged Out No longer eligi ble based on patient's age to complete this topic MENINGOCOCCAL (Group B) VACCINE SHARED DECISION-MAKING Aged Out No longer eligible based on patient's age to complete this topic MENINGOCOCCAL GROUPS A/C/Y/W VACCINE Aged Out No longer eligible b ased on patient's age to complete this topic PNEUMOCOCCAL VACCINE Aged Out No long er eligible based on patient's age to complete this topic Medical Devices Implanted Type Area Edge Finisher Device Identifier Shelf Expiration Date Model / Serial / Lot Kit Tissue Clsr Duo Tssl 1 Prefl Syr Implanted:Qty : 1 on 03/04/2024 by Carolin Avalos MD at [facility] 08/18/2025 [id number] / / [id number] Insurance * Guarantor: Geena Lay Account Type Relation to Patient Date of Phone Billing Address Personal/Family Self [address] * Guarantor: Lay Seay Account Type Relation to Patient Date of Phone Billing Address Personal/Family Self [address] Advance Directives * Full Code (Latest Code Status on File) Date Activated Date Inactivated Comments 03/04/2024 4:18 PM 03/05/2024 3:57 PM Care Teams Police Artist Relationship Specialty Start Date End Date Minh Donohue MD [address] [place] [phone] PCP - General Internal Medicine 09/13/23
--- OUTSIDE RECORDS SUMMARY | 2024-06-10 07:33 | XMS_ITS | Encounter Summary ---
Author Organization [facility] Address [address] [place] [address] Care Team Providers Care Manager Planning Name Role Phone Minh Donohue MD Primary Care Provider Reason for Visit * Reason Comments Bariatric Surgery Follow-up Encounter Details Date Type Department Care Team (Late st Contact Info) Description 06/09/2024 8:00 AM CDT Video Visit [facility] [address] [place] [address] Rabia Roberts, CULINARY MANAGER-CLOTH CUTTER [address] [place], [place] [id number] Morbid obesity (HCC) ; Status post laparoscopic sleeve gastrectomy; Bariatric surgery status Social History Tobacco Use Types Packs/Day Years Used Date Smoking Tobacco: Former Cigarettes Q uit: 09/03/2023 Smokeless Tobacco: Never Alcohol Use Standard Drinks/Week Comments Not Currently [...] on file 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 Answer Date of Assessment Author No 03/05/2024 2:07 PM Simeon Mc RN * Is person blind or have serious difficulty seeing? Answer Date of Assessment Author No 03/05/2024 2:07 PM Simeon Mc RN * Does person have serious difficulty walking/climbing stairs? Answer Date of Assessment Author No 03/05/2024 2:07 PM Simeon Mc RN * Does person have difficulty dressing/bathing? Answer Date of Assessment Author No 03/05/2024 2:07 PM Simeon Mc RN * Does person have difficulty doing errands alone? Answer Date of Assessment Author No 03/05/2024 2:07 PM Simeon Mc RN * Over the past 2 weeks, how often have you been bothered by any of the following problems? Question Answer Date of Assessment Author Little interest or pleasure in doing things Not at all 06/09/2024 7:56 AM Elza Hendrickson RN Feeling down, depressed, or hopeless Not at all 06/09/2024 7:56 AM JDT Karolina Nichols RN Patient Health Questionnaire-2 Score 0 06/09/2024 7:56 AM Timothy Hendrickson RN documented as of this encounter Mental Status * Does person have difficulty concentrating/remembering/making decisions? Answer Entry Date Author No 03/05/2024 2:07 PM Simeon Mc RN documented in this encounter Progress Notes * Rabia Roberts, CULINARY MANAGER-CLOTH CUTTER - 06/09/2024 7:47 AM CDT [facility] [place] [address] . . Date of encounter: 06/09/2024 Pt Name: Lay Seay : 1985 AGE: [age] year old SEX: female CSN: [id number] Visit type: Weight Management Follow Up Patients Primary care provider is : Minh Donohue MD Patient Verification & Telemedicine Based Consent I am proceeding with this evaluation at the direct request of the patient. I have verified this is the correct patient and have obtained verbal consent from the patient/surrogate to perform this voluntary telemedicine encounter evaluation. I have explained risks (including potential loss of confiden tiality), benefits, alternatives, and the potential need for subsequent face to face care. Patient/surrogate understands that there is a risk of medical inaccuracies given that our recommendations will be made based on reported data. Knowing that there is a risk that this information is not reported accurately, and that the telemedicine audio, or data feed may be incomplete, the patient agrees toproceed with evaluation and holds us harmless knowing these risks. In this evaluation, we will be providing recommendations only. The patient/surrogate has been notified that other healthcare professionals (including students, residents and technical personnel) may be involved in this audio evaluation. All laws concerning confidentiality and patient access to medical records and copies of medicalrecords apply to telemedicine. I have reviewed this above verification and consent paragraph with the patient/surrogate. Subjective: Lay Seay presents to the clinic 3 months following sleeve gastrectomy. she was seen in clinic last on 04/10/2024. Patient is taking 30-60 grams of proteins supplements daily. Patient is taking 64 oz of fluid per day. Doing 45 minutes of exercise daily. Patient is taking Bariatric multivitamins. Patient is having Reflux, not smoking, vaping, or using NSAID. Bowel movement are Normal. Has the patient been readmitted to the hospital since the last follow up ? No Has the patient had any post bariatric surgical operations or interventions performed since the last follow up? No Weight History: Initial Weight: 378.0 lb. BMI 59.19 Date: 09/13/2023 10/03/2023 Weight: (!) 170.9 kg (376 lb 11.2 oz) BMI (Calculated): 58.99 Total Wt Loss in lb: 1.3 lb 10/31/2023 Weight: (!) 170.6 kg (376 lb) (per pt) BMI (Calculated): 58.88 Weight Loss since last visit in lbs : 0.7 lb Total Wt Loss in lb: 2 lb 12/18/2023 Weight: (!) 171.3 kg (377 lb 9.6 oz) BMI (Calculated): 59.13 Weight Loss since last visit in lbs : +1.6 lb Total Wt Loss in lb: 0.4 lb 01/14/2024 Weight: (!) 171.6 kg (378 lb 6.4 oz) BMI (Calculated): 59.25 Weight Loss since last visit in lbs : +0.8 lb Total Wt Loss in lb: +0.4 lb 02/05/2024 Weight: (!) 171.6 kg (378 lb 3.2 oz) BMI (Calculated): 59.22 Weight Loss since last visit in lbs : 0.2 lb Total Wt Loss in lb: -0.2 lb 03/13/2024 Weight: (!) 165.1 kg (363 lb 14.4 oz) BMI (Calculated): 56.98 Weight Loss since last visit in lbs : 14.3 lb Total Wt Loss in lb: 14.1 lb 04/10/2024 Weight: (!) 156.5 kg (345 lb) BMI (Calculated): 54.02 Weight Loss since last visit in lbs: 18.9 lb Total Wt Loss in lb: 33 lb 06/04/2024 Weight: (!) 147.9 kg (326 lb) (per pt) BMI (Calculated): 51.05 Weight Loss since last visit in lbs : 19 lb Total Wt Loss in lb: 52 lb 06/09/2024 Weight: (!) 145.2 kg (320 lb) (per pt) BMI (Calculated): 50.11 Weight Loss since last visit in lbs : 25 lb Total Wt Loss in lb: 58 lb BSTOP Questions- 1 mo Post-Op Date: 04/10/2024 1. Did you receive any refills on the opioid pain medication prescribed to you after discharge? No 2. Did you dispose of unused pain medication at an appropriate facility or drop- off? Yes BSTOP Questions - 1 wk Post-Op Date: 03/13/24 How many tablets of opioid pain medication were given to you at discharge?5 Refills? How many tablets of opioid pain medication did you take after discharge? no = none MME Are you still taking the opioid pain medication prescribed to you at discharge? no What is your pain currently on the pain scale? 0 / 10 Obesity History Years of being overweight? 25 Age of first weight loss attempt? 18 Highest weight as an adult? 386 Goal Weight? 200 BMI: Body mass index is 50.12 kg/m??. Past Medical History[1] Past Surgical History[2] Social history: Social History Socioeconomic History Marital status: Single Spouse name: Not on file Number of children: Not on file Years of education: Not on file Highest education level: Not on file Occupational History Not on file Tobacco Use Smoking status: Former Current packs/day: 0.00 Types: Cigarettes Quit date: 09/03/2023 Years since quittin.7 Smokeless tobacco: Never Vaping Use Vaping status: Former Substance and Sexual Activity Alcohol use: Not Currently Comment: clean for 1 year Drug use: Not Currently Comment: clean for 1 year Sexual activity: Not on file Other Topics Concern Not on file Social History Narrative Not on file Social Drivers of Health Financial Resource Strain: Not on file Food Insecurity: Not on file Transportation Needs: Not on file Stress: Not on file Housing Stability: Not on file Family History: Family History[3] Medications: Medications[4] Medications[5] Allergy: Allergies[6] ROS: A comprehensive review of systems was negative except as described in HPI. Objective: Ht 1.702 m (5' 7 ) Wt (!) 145.2 kg (320 lb) Comment: per pt Weight: (!) 145.2 kg (320 lb) (per pt) Height: 170.2 cm (5' 7 ) Body mass index is 50.12 kg/m??. Unable to complete physical assessment due to telemedicine visit. Constitutional: Alert, awake and oriented without any apparent discomfort. Eyes: Neck Exam: Respiratory: Cardiovascular: Abdomen: Skin: Extremities: Neurological: Psychiatric: The patient's mood and affect appeared to be appropriate Labs Recent Labs Component Name 01/1552103/04/24 1529 WBC 10.5 12.4* RBC 4.54 4.52 HGB 11.8* 11.6* HCT 37.2 36.3 PLTCOUNT 228 266 Recent Labs Component Name 03/05/2422 03/04/24 1529 SODIUM 135* 141 POTASSIUM 3.7 3.8 CO2 16* 21* BUN 7.5* 11.0 CREATININE 0.71 1.06 Recent Labs Component Name 03/05/2452103/04/24 1529 GLUCOSE 97 122 Recent Labs Component Name 03/05/2452103/04/24 1529 AST 33 33 ALT 29 32 No results for input(s): LDL , HDL , TRIG , TSH in the last 90843 hours. Recent Labs Component Name 03/05/2422 09/17/23 0000 HGBA1C 5.1 5.5 No results for input(s): PT , PTT , INR , TSH in the last 33346 hours. No results for input(s): TSH in the last 46758 hours. No results for input(s): IRON in the last 49816 hours. No results for input(s): [id number] in the last 25530 hours. No results for input(s): VITAMINA in the last 84422 hours. No results for input(s): IRON in the last 66133 hours. No results for input(s): VITK1 in the last 89468 hours. No results for input(s): [id number] in the last 92494 hours. No results for input(s): ALPHATOCOPH in the last 97129 hours. No results for input(s): GAMMATOCOPH in the last 29541 hours. No results for input(s): MAGMGDL in the last 00206 hours. Recent Labs Component Name 03/05/24 0522 PHOS 2.8 Some lab results will be in paper format so may be scanned in the EMR. Imaging studies No results found. Some Imaging studies results will be in paper format so may be scanned in the EMR. Assessment and Plan Morbid Obesity : Change in weight as noted in the weight history above. Total weight loss since starting the program:58 pounds Current BMI Body mass index is 50.12 kg/m??. with weight of Weight: (!) 145.2 kg (320 lb)(per pt) . Surgery : s/p: Sleeve Gastrectomy with hiatal hernia . Date of surgery 03/04/2024. @ [facility], by Dr. Avalos Patient was recommended to take about 60-80 g of protein per day, and get involved in an exercise plan. The patient is also recommended to attend support group meetings.I also explained to her that she should take 2 adult multivitamin tablets, and 1500 mg of calcium citrate, starting 2 weeks after surgery. Patient was made aware of the nutrition deficiency should she fail to take supplementation. Doing well postoperatively. May discontinue Colon Health, and Actigall. May use fiber supplementation like Bene fiber 1-2 teaspoon twice daily in the protein supplementation to prevent constipation. Prevention Patient has been advised that during the first 18-24 months after bariatric surgery , she should refrain from becoming . The body is healing with many changes and it is difficult to sustain two lives when losing weight after bariatric surgery. She has been instructed of the importance of control methods to avoid . Her current control method is abstinence. Should she become , she is advised to contact the [facility] Team The patient verbalizes understanding of all information provided and denies any further questions. History of GERD/hiatal hernia Prior to surgery patient was taking Prilosec 40 mg daily. She was found to have a hiatal hernia on her preop EGD. She underwent hiatal hernia repair at the time of sleeve gastrectomy. She reports some reflux symptoms even with drinking water at times. Will continue PPI until 6 months postop. Hypertension Prior to surgery, patient was taking amlodipine 10 mg daily, Cozaar 100 mg daily. Her blood pressure at home today was 106/77 she is no longer on blood pressure medications. Night terrors Continue prazosin 6 mg t.i.d. as needed. Continue follow-up with primary care physician. Sleep apnea Patient had a sleep study which showed sleep apnea. Weight loss could help with resolving this condition as well. Patient was encouraged to utilize CPAP/ BiPAP as pre recommended settings. Anxiety/PTSD Patient is currently taking Buspar, hydroxyzine, prazosin, and topiramate for this. Continue medications as prescribed. Continue follow up with PCP/psych. Joint pain Due to being overweight and having overburdened her lower extremity joints she is developing arthritis. She was reminded to avoid NSAIDS following bariatric surgery. History of Smoking addiction Patient reports she quit smoking 09/03/23. She quit vaping 08/04/23. History of substance abuse Patient has history of cocaine, meth, and marijuana use. She is 19 months clean of this. Random drug screen completed and negative 12/18/2023. I counseled the patient on continuing Behavior and Lifestyle Modifications : Eat 1-2 small meals daily and protein supplementation. Recommended to take about 60-80 g of protein per day. Eliminate high caloric beverages. Do not graze between meals. Portion control, measuring portions, showed portion control plates. Choosing low sugar, high protein items. Reducing stress and emotional eating. Incorporating fruits and vegetables in moderation. Taking 20 minutes to eat a meal. Patient was instructed to keep a food journal. Patient was counseled on the need for routine exercise plan, at least 10 minutes per day. Labs ordered: Routine Vitamin and Lab check. Plan : as above recommendation. Follow up with: Surgeons / PA/ INSTRUCTIONAL COORDINATOR : 3 months.PRN Dietitian: as scheduled. The patient has given verbal consent to have today's visit conducted by this same means with treatment provided remotely. The patient verbally consents to the billing and collection practices of [facility]. Patient location: Work This encounter was performed using: audio and video Time spent with patient/proxy: 31 minutes The plan was reviewed with the patient and the patient confirmed understanding of the plan and all follow-up steps. Patient is agreeable with this plan after shared decision making with patient. All aspects of patient's medical history were reviewed and updated as documented in Epic. Rabia Roberts, CULINARY MANAGER-CLOTH CUTTER [1] Past Medical History: Diagnosis Date Anxiety GERD (gastroesophageal reflux disease) High blood pressure Joint pain Sleep apnea [2] Past Surgical History: Procedure Laterality Date Cervical LEEP 2016 ENDOSCOPY, UPPER N/A 12/12/2023 N/A; ESOPHAGOGASTRODUODENOSCOPY WITH BIOPSY Gastrectomy N/A 03/04/2024 N/A; LAPAROSCOPIC SLEEVE GASTRECTOMY WITH HIATAL HERNIA REPAIR AND POSSIBLE EGD [3] Family History Problem Relation Name Age of Onset Diabetes; unknown type Mother Heart Failure Mother Lymphoma Father [4] Outpatient Medications Marked as Taking for the 06/09/24 encounter (Video Visit) with Rabia Roberts APRN-CNP Medication Sig acetaminophen (TYLENOL) 500 MG tablet Pt is to take 2 tabs po every 8 hours for basal pain. May take additional 1 tab twice daily if needed. Pt to not exceed 4000mg daily. albuterol HFA (Proventil; Ventolin; Proair) 108 (90 Base) MCG/ACT inhaler busPIRone (Buspar) 30 MG tablet Take 1 (one) tablet by mouth once daily Calcium Citrate-Vitamin D (CALCIUM CITRATE + D PO) Take 600 mg by mouth 2 times daily docusate sodium (Colace) 100 MG capsule Take 1 (one) capsule by mouth 2 times daily hydrOXYzine pamoate (Vistaril) 50 MG capsule multivitamin daily (One A Day) tablet Take 1 (one) tablet by mouth once daily Baratric with iron prazosin (Minipress) 2 MG capsule Take 1 (one) capsule by mouth 3 times daily topiramate (Topamax) 100 MG tablet Take 1 (one) tablet by mouth at bedtime vitamin D, ergocalciferol, (Drisdol) 1.25 MG (94568 UT) capsule Take 1 (one) capsule by mouth every7 days [5] (Not in a hospital admission) [6] No Known Allergies Cosigned by Carolin Avalos MD at 06/09/2024 12:13 PM CDT documented in this encounter Plan of Treatment Upcoming Encounters Date Type Department Care Team (Late st Contact Info) Description 09/04/2024 11:00 AM CDT Video Visit [facility] [address] [place] [phone] 09/04/2024 11:30 AM CDT Video Visit [facility] [address] [place] [phone] April Rendon APRN-CLOTH CUTTER [address] [place] [address] 03/06/2025 11:00 AM LASER OPERATOR Clinical Support [facility] [address] [place] [address] 03/06/2025 11:30 AM LASER OPERATOR Office Visit [facility] [address] [place] [phone] Rabia Roberts, CULINARY MANAGER-CLOTH CUTTER [address] [place] [address] Scheduled Orders Name Type Priority Associated Diagnoses Orde r Schedule CBC WITH DIFFERENTIAL Lab Routine Morbid obesity (HCC) Status post laparoscopic sleeve gastrectomy Bariatric surgery status 1 Occurrences starting 06/09/2024 until 06/09/2025 COMPREHENSIVE METABOLIC PANEL Lab Routine Morbid obesity (HCC) Status post laparoscopic sleeve gastrectomy Bariatric surgery status 1 Occurrences starting 06/09/2024 until 06/09/2025 FERRITIN Lab Routine Morbid obesity (HCC) Status post laparoscopic sleeve gastrectomy Bariatric surgery status 1 Occurrences starting 06/09/2024 until 06/09/2025 LIPID PROFILE Lab Routine Morbid obesity (HCC) Status post laparoscopic sleeve gastrectomy Bariatric surgery status 1 Occurrences starting 06/09/2024 until 06/09/2025 MAGNESIUM BLOOD Lab Routine Morbid obesity (HCC) Status post laparoscopic sleeve gastrectomy Bariatric surgery status 1 Occurrences starting 06/09/2024 until 06/09/2025 VITAMIN D 25-HYDROXY Lab Routine Morbid obesity (HCC) Status post laparoscopic sleeve gastrectomy Bariatric surgery status 1 Occurrences starting 06/09/2024 until 06/09/2025 VITAMIN B12 FOLATE PANEL Lab Routine Morbid obesity (HCC) Status post laparoscopic sleeve gastrectomy Bariatric surgery status Expected: 08/13/2024 (Approximate), Expires: 06/09/2025 VITAMIN B1 Lab Routine Morbid obesity (HCC) Status post laparoscopic sleeve gastrectomy Bariatric surgery status 1 Occurrences starting 06/09/2024 until 06/09/2025 PTH INTACT+CALCIUM Lab Routine Morbid obesity (HCC) Status post laparoscopic sleeve gastrectomy Bariatric surgery status 1 Occurrences starting 06/09/2024 until 06/09/2025 PHOSPHORUS BLOOD Lab Routine Morbid obesity (HCC) Status post laparoscopic sleeve gastrectomy Bariatric surgery status 1 Occurrences starting 06/09/2024 until 06/09/2025 IRON + TRANSFERRIN PANEL Lab Routine Morbid obesity (HCC) Status post laparoscopic sleeve gastrectomy Bariatric surgery status 1 Occurrences starting 06/09/2024 until 06/09/2025 documented as of this encounter Visit Diagnoses Diagnosis Morbid obesity (HCC)- Primary Morbid obesity Status post laparoscopic sleeve gastrectomy Bariatric surgery status documented in this encounter Care Teams Manager Planning Relationship Specialty Start Date End Date Minh Donohue MD [address] [facility] [address] [facility] [address] [place] [phone] PCP - General Internal Medicine 09/13/23 documented as of this encounter
--- OUTSIDE RECORDS SUMMARY | 2024-06-10 07:33 | XMS_ITS | Encounter Summary ---
Author Organization [facility] Health Address [address] [place] [address] Care Team Providers Care Flotation Tank Operator Name Role Phone Minh Donohue MD Primary Care Provider Encounter Details Date Type Department Care Team (Late st Contact Info) Description 06/09/2024 9:00 AM CDT Video Visit [facility] Management [facility] [address] [place] [phone] Rabia Roberts, DISK OPERATOR-CALL BOX WIRER [address] [place], [place] [phone] Status post laparoscopic sleeve gastrectomy Social History Tobacco Use Types Packs/Day Years [...] on file Legal Sex Female 10:03 AM EARLY CHILDHOOD EDUCATION SPECIALIST Gender Identity Not on file Sexual Orientation [...] Mass Index 50.11 06/09/2024 8:00 AM CDT documented in this encounter Functional [...] hopeless Not at all 06/09/2024 7:56 AM Karolina Hendrickson RN Patient Health Questionnaire-2 Score 0 06/09/2024 7:56 AM JDT Timothy Nichols RN documented as of this encounter Mental Status * Does person have difficulty concentrating/remembering/making decisions? Answer Entry Date Author No 03/05/2024 2:07 PM Simeon Mc RN documented in this encounter Progress Notes * Jenny Serna RD/DOMENICO - 06/09/2024 8:53 AM CDT MEDICAL NUTRITION THERAPY Weight Management Services Bariatric Surgery Follow-Up Session Number: (3 months s/p VSG) Patient Verification & Telemedicine Based Consent I [...] verification and consent paragraph with the patient/surrogate. The patient has given verbal consent to have today's visit conducted by this same means with treatment provided remotely. The patient verbally consents to the billing and collection practices of [facility]. Patient location: Work This encounter was performed using: audio and video Total time spent on visit on date of encounter is: 12 minutes Session Date: 06/09/24 Patient: Lay Seay Date of : 1985 (39 year old) PCP Physician: Minh Donohue MD Referring Physician: Robbie NUTRITION ASSESSMENT Primary Diagnoses/Co-morbidities: Morbid Obesity Secondary Diagnoses/Co-morbidities: Hypertension (GERD, SA, joint pain) Have you seen a dietitian?: Yes Pertinent Labs: no new to review Pertinent Medications: reviewed- topamax, buspar, Colace BID Current V/M Supplements: D2 weekly, Bariatric MV with iron, Bariatric Pal 600 mg calcium citrate BID Eating History Are you following a special diet at home?: Weight Reduction Are you having trouble following your diet?: No Are you having any trouble eating?: No Are you avoiding salty food, and not adding salt to your food?: No Are you limiting your liquids?: No How much liquids per day do you drink?: 64 oz Usual Number of Times You Eat Out Per Week : (once every other week) Who prepares the meals?: Self Exercise Type of exercise?: Walking;Aerobic Machine;Resistance How many times do you exercise each week?: (5-6) How many minutes of exercise each time?: (25-30) Weight History Height: 170.2 cm (5' 7.01 ) Initial Program Weight: 378.0 lb. BMI 59.19 Current Weight: (!) 145.2 kg (320 lb) Weight Method : Stated BMI (Calculated): 50.11 Has your weight changed since last visit?: Loss # (26.7#) Total Program Weight Loss: 58# Pt seen for nutrition f/u. Pt is 3 months s/p VSG by Dr. Avalos. Pt's weight is down 26.7# since last visit, down 58# since beginning program. Pt reports no vomiting but did experience diarrhea after eating fried chicken breast 3 days ago, notes she had tried other fried foods in moderation previously and tolerated well. Pt reports only eating out once every other week. Pt reports doing better at drinking 64 oz water daily and no issues consuming 80 g protein/day- at least 1 protein shake/dayplus other high protein foods such as protein bars, string cheese, yogurt, etc. Pt reports packing protein lunch box to take to work and meal preps dinners- salmon or chicken breast with veggies. Pt reports cardio/resistance at gym 25-30 min 3-4x/week and walks 30 min with cousin 2x/week. Reviewed food recall and vitamins. 24 Hour Food Recall Breakfast - protein shake- Premier Lunch - 1 rib, 2 T baked beans, 2 T cabbage, few bites corn on the cob Dinner - smart popcorn Snacks - none Beverages - 4 16 oz water NUTRITION DIAGNOSIS Diagnosis: Overweight/obesity Related to: (hx excessive kcal intake) As evidenced by: BMI 50.11. NUTRITION INTERVENTION Interventions: Motivational interviewing;Goal setting;Self-monitoring;Problem solving;Recommended modifications;Collaboration with other providers Reviewed healthy balance diet for weight loss using protein shakes. Reviewed the echeverria bariatric diet principles. Further instruction provided for phases of bariatric diet. Reinforced behavior changes for bariatric diet such as no straws and smaller plate. Explained importance of continued bariatric vitamin/mineral and protein supplementation. Pt v/u. Pt is ready to begin phase IV. Reviewed phase IV foods, portion sizes, max intake of 1 c/meal, limit CHOs to <1/2 c/day and reinforced introducing new foods one at a time to assess tolerance. Reinforced importance of 1-2 protein shakes daily as meals to meet nutrition needs and promote weight loss. Reinforced not eating and drinking together. Reinforced importance of MV BID or bariatric MV daily and 500 mg calcium citrate BID at least an hour apart from MV per ASMBS guidelines to prevent nutritional deficiencies. Reinforced physical activity of 150+ minutes weekly to promote weight loss and for cardiovascular benefits. Pt v/u. External Barriers to Change: advancing diet too soon NUTRITION MONITORING/EVALUATION Nutrient Needs: Goals: Nutrition Goal #1: begin phase 4 Nutrition Goal #2: 80+ g protein daily Nutrition Goal #3: 64+ oz fluids daily Monitor/Evaluation: Monitoring and evaluation: Fluid/beverage intake;Food intake;Protein intake;Carbohydrate intake;Mineral/element intake;Food and nutrition knowledge/skills;Beliefs and attitudes;Adherence;Physical activity;Weight change;Body Mass index RD contact information provided. Pt encouraged to call RD with questions and/or concerns. Evaluation of Overall Compliance Potential: Comprehension: Often Demonstrated Receptivity: Often Demonstrated Adherence: Sometimes Demonstrated Session Information Session Date: 06/09/24 Session beginning time: 856 Session ending time: 908 Session total minutes: 12 Minutes Teaching Method: Explanation;Demonstration;Teach Back Next visit: (6 months post op) Total MNT minutes this calendar year: 45/240 Nutritional Review Cleared, additional RD visits required pre-op ___ Cleared, no additional RD visits required pre-op ___ Not cleared, additional RD visit(s) required pre-op ___ Continue with post op RD visits per protocol _X__ Jenny Serna RD/DOMENICO Cosigned by Rabia Roberts APRN-CNP at 06/09/2024 11:16 AM CDT documented in this encounter Plan of Treatment Upcoming Encounters Date Type Department Care Team (Late st Contact Info) Description 09/04/2024 11:00 AM CDT Video Visit [facility] Weight Management Services [address] [place] [phone] 09/04/2024 11:30 AM CDT Video Visit [facility] Weight Management Services [address] [place] [phone] April Rendon APRN-CALL BOX WIRER [address] [place] [address] 03/06/2025 11:00 AM EARLY CHILDHOOD EDUCATION SPECIALIST Clinical Support [facility] Weight Management Services [address] [place] [phone] 03/06/2025 11:30 AM EARLY CHILDHOOD EDUCATION SPECIALIST Office Visit [facility] Weight Management Services [address] [place] [phone] Rabia Roberts, DISK OPERATOR-CALL BOX WIRER [address] [place] [address] documented as of this encounter Visit Diagnoses Diagnosis Status post laparoscopic sleeve gastrectomy- Primary documented in this encounter Care Teams Flotation Tank Operator Relationship Specialty Start Date End Date Minh Donohue MD [address] [facility] [address] [facility] [address] [place] [phone] PCP - General Internal Medicine 09/13/23 documented as of this encounter
[2024-06-10 08:01] LABS: Basophils Percent Auto 0.7 % (0.2-1.2); Eosinophils Absolute Auto 0.1 K/mm3 (0-0.3); Hematocrit 39.2 % (37.0-47.0); Hemoglobin 12.1 g/dL (12.0-15.0); Immature Granulocyte Absolute 0.01 K/mm3 (0.00-0.031); Immature Granulocyte Percent A 0.2 % (0-0.5); Lymphocytes Absolute Auto 2.25 K/mm3 (0.9-3.2); Mean Corpuscular HGB Conc 30.9 g/dl (32-36); Mean Corpuscular Hemoglobin 24.8 pg (26-34); Mean Corpuscular Volume 80.5 fl (80-100); Mean Platelet Volume 11.1 fl (7.4-10.4); Monocytes Absolute Auto 0.4 K/mm3 (0.1-0.6); Monocytes Percent Auto 5.9 % (2.6-8.5); Neutrophils Absolute Auto 3.2 K/mm3 (1.3-6.7); Neutrophils Percent Auto 53.2 % (45.5-73.1); Platelet Count Result 236 k/mm3 (150-375); Red Blood Count 4.87 M/mm3 (4.2-5.4); Red Cell Distribution Width 16.5 % (11.5-14.5); White Blood Count 5.9 K/mm3 (4.5-10.0)
[2024-06-10 08:16] LABS: Alanine Aminotransferase 15 U/L (6-35); Albumin Level 4.3 g/dL (3.5-5.1); Alkaline Phosphatase 57 U/L (38-126); Anion Gap 13 mmol/L (4-12); Aspartate Amino Transferase 22 U/L (14-36); Bilirubin,Total 0.5 mg/dL (0.2-1.3); Blood Urea Nitrogen 18 mg/dL (7-17); Calcium 9.3 mg/dL (8.4-10.2); Carbon Dioxide 18 mmol/L (22-30); Chloride 109 mmol/L (98-107); Cholesterol 184 mg/dL (0-200); Estimated Glomerular Filt Rate > 60; Glucose 85 mg/dL (65-110); HDL Direct 69 mg/dL; Magnesium 2.1 mg/dL (1.6-2.3); Phosphorus 3.4 mg/dL (2.5-4.5); Potassium 3.9 mmol/L (3.4-5.0); Sodium 140 mmol/L (137-145); Triglycerides 63 mg/dL (<150)
[2024-06-10 08:27] LABS: LDL Cholesterol Direct 69 mg/dL
[2024-06-10 08:38] LABS: Iron 59 ug/dL (37-170)
[2024-06-10 08:48] LABS: Percent Iron Saturation 16 % (20-50)
[2024-06-10 08:58] LABS: Parathyroid Intact 51.8 pg/mL (14.5-75.2)
[2024-06-10 09:13] LABS: Ferritin 8.01 ng/mL (6.24-137)
[2024-06-10 09:20] LABS: Folic Acid 12.2 ng/mL (2.76->20)
[2024-06-10 09:44] LABS: Vitamin D 25 Hydroxy 51.6 ng/mL
[2024-06-13 08:24] LABS: Vitamin B1 16 nmol/L (8-30)
== END 2024-06-10 07:29 | disposition home or self-care (01) ==
PROVIDERS: PCP Internal Medicine; Visit Provider Registered Nurse
DX: E66.01 Morbid (severe) obesity due to excess calories (principal); Z98.84 Bariatric surgery status
CPT/HCPCS: 36415; 80053; 80061; 82306; 82607; 82728; 82746; 83540; 83550; 83735; 83970; 84100; 84425; 85025

== ENCOUNTER 2024-12-24 01:25 | Day surgery (SDC) | payer OTHER, SELFPAY ==
--- OUTSIDE RECORDS SUMMARY | 2013-06-30 20:26 | XMS_ITS | Continuity of Care Document ---
Author Organization [facility] Address [address] [place] [address] Phone Care Team Providers Care Collision Repair Technician Name Role Phone Nurse, Registered Unavailable Unavailable Allergies, Adverse Reactions, Alerts Substance Reaction Status Criticality No Known allergies Medications Medication Instructions Dosage Effective Dates (start - stop) Status Comments amlodipine 10 mg tablet take 1 tablet by oral route every day 10 MG - Active hydrochlorothiazide 25 mg tablet take 1 tablet by oral route every day 25 MG - Active Procedures Procedure Date OFFICE/OUTPATIENT VISIT, EST HEPATITIS A VACCINE, ADULT DOSAGE, FOR I NTRAMUSCULAR USE OFFICE/OUTPATIENT VISIT, NEW COLLECTION OF VENOUS BLOOD BY VENIPUNCTU RE COLLECTION OF VENOUS BLOOD BY VENIPUNCTU RE Advance Directives Directive Yes / No Effective Date File Name No Information Encounters Encounter Description Practice Location Reason(s) For Visit Diagnoses Date Provider Providers Copied on Encounter [facility], [address], [place], [place], [id number] , tel: [phone] Long-Term No Information 4 Nurse Registered. [address], [place], [place], [id number], [place]. tel:[phone] OFFICE/OUTPA TIENT VISIT, EST [facility], [address], [place], [place], [id number] , [place] tel: [phone] [facility] [place] Hep A (chief complaint) Need for prophylactic vaccination and inoculation against viralhepatitis 3 No Information OFFICE/OUTPA TIENT VISIT, NEW [facility], [address], [place], [place], [id number] , tel: [phone] [facility] [place] check up (chief complaint) Unspecified essential hypertensionObesi tyOther specified drug dependence, in remissionSpecial screening for other specified conditionsSpecial screening for other specified conditions 3 Angela Ayon. [address], [place], [place], [id number], [place]. tel:[phone] Family History Family Member Type Diagnosis Age At Onset Father Problem (finding) Problem (finding) Family history of Renal disease Mother Problem (finding) congestive heart failur e Mother Problem (finding) Maternal history of ankur betes mellitus Mother Problem (finding) hypertension Father Problem (finding) Lymphoma (Cause Of Deat h) Immunizations Vaccine Date Status Comments Hep A (adult) administered Note: Left del toid ; Source: New Immunization Record Payers Payer name Insurance type Covered republican ID Authoriza tion(s) No Information Social History Type Description Quantity Date Captured Comments Sex Female Smoking Status No Information Chief Complaint And Reason For Visit No Information Reason For Referral Reason For Referral No Information Plan Of Treatment Date Type Action Status Goal Urinalysis. Due on 13 due Goal AST. Due on due Goal BMP fasting. Due on due Goal TSH. Due on due Goal Lipid Panel. Due on due Goal ALT. Due on due History Of Present Illness Encounter Date Complaint History Of Prese nt Illness No Information Functional Status Date Functional Assessmen t No Information Instructions Date Instruction Additional Infor mation No Information Assessments Type Assessment Date No Information Patient Care Teams Name Effective Dates (start - stop) Status Members No Information
[2024-12-11 15:04] VITALS: BMI 45.6
--- NOTE | 2024-12-11 15:13 | PC.NURSE ---
Addendum entered by Eliana Grover RN 12/11/24 15:19: NO MEDICATIONS MORNING OF SURGERY Original Note: [facility] has started construction of its new state of the art ER which will open Spring 2026. With this, we anticipate parking may be a challenge for some our surgical patients and families. Parking spaces are limited but are available for all Surgical, obstetrics, and ER patients sharing this lot. If you arrive and find you are having a hard time finding a parking space, please note that we understand the challenges, please drive around the hospital and park near Hospital Entrance 1. When you enter this entrance, you can ask a volunteer to direct or take you back to the surgical waiting area to check in. We appreciate everyone?s understanding of these expected challenges while we build for your future. Report to the Outpatient Waiting Room, entrance under the green pavilion located off [address], at time _0600_ on date 12/24/24_. Planned Procedure Time: __0730_.? Time changes happen often and if your time is changed the preop area will call you the afternoon before. - You and your visitor will be asked to self-screen and do not enter if you have any COVID symptoms. Please call surgeon if you need to reschedule. - A mask is optional within the hospital at this time. Patients may have clear liquids (water, carbonated beverages, clear teas, apple juice) until 3 hours prior to surgery with a maximum of 20 ounces. - No food from midnight until time of surgery and no smoking, or chewing tobacco (or any form of nicotine). No chewing gum, candy or mints. Take only the following medications with a SIP of water on the morning of surgery: DO NOT STOP ANY OF YOUR OTHER PRESCRIPTION MEDICATIONS PRIOR TO SURGERY EXCEPT THE FOLLOWING Hold all vitamins and supplements for 3 days per anesthesiologist. Medications to discontinue per physician Date to take last dose Please no make-up, nail turkmen, hairspray, perfume, deodorant, or body powder the day of surgery.? No jewelry (including any body piercings) or valuables the day of surgery, leave them at home.? Please take a shower or bath the night before, or the morning of, surgery with an antibacterial soap.? Wear comfortable, loose fitting clothing.? Children are encouraged to wear pajamas. - Jewelry must be removed prior to entering the operating room.? Rings and piercings that are not removed may be cut off. - The hospital will not accept responsibility for valuables.? - Please leave all valuables, including medications, at home the day of surgery. If you are going home after surgery, a licensed day haul or farm charter bus driver must drive you home.? - NO public transportation without another adult if you receive anesthesia. - We recommend that an adult stay with you for 24 hours following discharge. - We also recommend that you do not drive, make important decision, drink alcoholic beverages, or take any drugs that were not prescribed by your health care provider for at least 24 hours after your discharge time. For Pediatric surgeries, we recommend two adults accompany the child home. Follow any additional instructions given to you from your surgeon. Telephone instructions given to _PATIENT__and asked if any additional questions and then verbalized understanding. Patient advised to call surgeon office or pre surgery nurse liaison [phone] if any additional questions.
--- OUTSIDE RECORDS SUMMARY | 2024-12-24 01:28 | XMS_ITS | Clinical Summary ---
Author Organization [facility] Address [address] [place] [address] Care Team Providers Care Commercial Pest Control Representative Name Role Phone Minh Donohue MD Primary Care Provider [phone] Source Comments [facility],non-owned Affiliates and Associated Physician Practices is amultiple site organization consisting of ambulatory clinics and hospital sitesin [place], [place], [place] and [place]. This disclosure is being madepursuant to the Care Everywhere program and may not contain all information available regarding this patient. Last updated 17.[facility] Allergies No known active allergies Medications * Be aware that medications may not be up to date on this document. Alwaysverify current medications with the patient. albuterol HFA (Proventil; Ventolin; Proair) 108 (90 Base) MCG/ACT inhaler 4 Active vitamin D, ergocalciferol, (Drisdol) 1.25 MG (62070 UT) capsule Take 1 (one) capsule by [...] mg by mouth 2 times daily Active docusate sodium (Colace) 100 MG capsuleIndicati ons:Bariatric surgery status Take 1 (one) capsule by mouth 2 times daily 60 capsule 3 5 Active Additional Information Patient not taking.Reported on 09/04/2024 FeroSul 325 (65 Fe) MG tablet 5 Active omeprazole (PriLOSEC) 40 MG capsuleIndicati ons:Bariatric surgery status TAKE 1 CAPSULE BY MOUTH DAILY BEFORE BREAKFAST 90 capsule 1 5 Active Active Problems Problem Noted Date Diagnosed Date Morbid obesity 03/04/2024 Hiatal hernia 03/04/2024 Sleep apnea 09/04/2023 High blood pressure 09/04/2023 Acid reflux disease 09/04/2023 Joint pain 09/04/2023 Encounters Date Type Department Care Team Description 11/08/2024 Orders Only [facility] Weight Management Services [address] [place] [phone] April Rendon APRN-CNP Status post laparoscopic sleeve gastrectomy; Iron deficiency 10/17/2024 Orders Only [facility] Weight Management Services [address] [place] [phone] Rabia Roberts APRN-CNP 10/17/2024 Refill [facility] Services [address] [place] [phone] Rabia Roberts APRN-CNP Refill Request from Last 3 Months Family History Medical [...] Date Recorded Patient Health Questionnaire-2 Score 0 09/04/2024 Comments Unknown Sex and Gender Information Value Date Recorded Sex Assigned at Not on file Legal Sex Female 10:03 AM FOIL STAMP OPERATOR Gender Identity Not on file Sexual Orientation Not on file Last Filed Vital Signs Vital Sign Reading Time Taken Comments Blood Pressure 157/83 03/05/2024 12:36 PM FOIL STAMP OPERATOR Pulse 91 03/05/2024 12:36 PM FOIL STAMP OPERATOR Temperature 37.1 C (98.8 F) 03/05/2024 12:36 PM FOIL STAMP OPERATOR Respiratory Rate 17 03/05/2024 12:3 4 PM FOIL STAMP OPERATOR Oxygen Saturation 99% 03/05/2024 8:0 5 AM FOIL STAMP OPERATOR Inhaled Oxygen Concentration - - Weight 138.8 kg (306 lb) 09/04/2024 11: 29 AM CDT per pt / video visit Height 170.2 cm (5' 7) 09/04/2024 11:2 9 AM CDT Body Mass Index 47.93 09/04/2024 11:29 AM CDT Plan of Treatment Upcoming Encounters Date Type Department Care Team (Late st Contact Info) Description 03/06/2025 11:00 AM FOIL STAMP OPERATOR Clinical Support [facility] Weight Management Services [address] [place] [phone] 03/06/2025 11:30 AM FOIL STAMP OPERATOR Office Visit [facility] Weight Management Services [address] [place] [phone] Rabia Roberts, INFORMATION TECHNOLOGY DATA ANALYST-WEB ANALYST [address] [place] [address] Health Maintenance Due Date Last Done Comments HIV SCREENING 2000 HEPATITIS C SCREENING 05/04/2003 DTAP/TDAP/TD VACCINES (1 - Tdap) 2004 HEPATITIS B VACCINE (1 of 3 - 19+ 3-dose series) 2004 PAP SMEAR 2006 HPV VACCINE (1 - 3-dose SCDM series) 2012 COVID-19 VACCINE (1 - 2023-2 5 season) 2024 INFLUENZA VACCINE (#1) 2024 ZOSTER VACCINE (1 of 2) 05/09/2035 [...] this topic Medical Devices Implanted Type Area Communications Systems Engineer Device Identifier Shelf Expiration Date Model / Serial / Lot Kit Tissue Clsr Duo Tssl 1 Prefl Syr Implanted:Qty : 1 on 03/04/2024 by Carolin Avalos MD at [facility] N[facility] 08/18/[facility]25 [id number] / / [id number] Insurance [facility] Advance Directives * Full Code (Latest Code Status on File) Date Activated Date Inactivated Comments 03/04/2024 4:18 PM 03/05/2024 3:57 PM Care Teams Commercial Pest Control Representative Relationship Specialty Start Date End Date Minh Donohue MD [address] [facility] [address] [place] [phone] PCP - General Internal Medicine 09/13/23
[2024-12-24 06:45] VITALS: BP 135/96; PULSE 64; TEMP 36.2; O2SAT 100; BMI 45.0
[2024-12-24] MEDS: LACTATED RINGERS 1,000 ML 30 ML IV CONT (06:45)
[2024-12-24] MEDS: ACETAMINOPHEN 500 MG TABLET 1000 MG PO (06:45)
--- NOTE | 2024-12-24 07:08 | WPDANESEPPF ---
Anes - Initial Pre Proc Eval Procedure: Operation Date: 12/24/24 07:30 Proposed Procedures p Hysteroscopy with Biopsy of Endometrium and/or Polypectomy - Ran Gonzalez MD Date/Time: 12/24/24 07:08 Surgeon: Ran Gonzalez MD Pre Op Diagnosis: Endometrial Polyp Patient Data Age: 39 Gender: F Height: 1.7 m Weight: 132 kg Allergies Allergy/AdvReac Type Severity Reaction Status Date / Time No Known Allergies Allergy Verified 12/11/24 15:00 Home Medications ?Medication ?Instructions ?Recorded ?Confirmed ?Type ferrous sulfate 325 mg (65 mg 325 mg PO DAILY 02/28/20 12/11/24 History iron) tablet ibuprofen 800 mg tablet 800 mg PO TID PRN pain #30 tabs 02/28/20 12/11/24 Rx buspirone 10 mg tablet 15 mg PO HS 10/11/23 12/11/24 History hydroxyzine HCl 50 mg tablet 50 mg PO BID 10/11/23 12/11/24 History omeprazole 40 mg capsule,delayed 40 mg PO DAILY 10/11/23 12/11/24 History release prazosin 2 mg capsule 2 mg PO TID 10/11/23 12/11/24 History topiramate 100 mg tablet 100 mg PO DAILY 10/11/23 12/11/24 History multivitamin 1 tablet PO DAILY 01/23/24 12/11/24 History Patient hx anesthesia problems: none Family hx anesthesia problems: none Results Review: All pre-operative results and documents have been reviewed as part of the pre-operative evaluation. 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 History of UTI Right knee DJD Right knee pain Anxiety Anemia GERD (gastroesophageal reflux disease) HTN (hypertension) Surgical History Surgical History H/O LEEP Family History Family History Father , Lymphoma Lymphoma Mother , Related to kidney failure and CHF Diabetes mellitus Acute myocardial infarction Unknown Heart disease Hypertension Social History Social History Social History: Caffeine-none Smoking packs per day: 0.25 Smoking cigarettes per day: 5.0 Years smoked: 20 Smoking pack-years: 5.00 Smoking status: Former smoker Tobacco type: e-cigarettes/vaping Second hand tobacco smoke exposure: No Smoking end date: 09/02/23 Additional smoking assessment comments: 2023 LAST USE Alcohol intake: former Alcohol use details: LAST USE 2 YRS Substance use: former Substance use type: crack/cocaine and methamphetamine Other substance usage details: LAST USE 2 YRS AGO Living arrangements: alone Occupation/Education: occupation Gender identity (if verbalized by the patient): Female Sexual Orientation (if Verbalized by the Patient): Straight or Heterosexual Anes - Eval Final PreProcedure Day of Procedure 12/24/24 07:08 Patient weight: obese Lungs: normal air movement Airway: Mallampati scale class II Neurological: alert and oriented Last oral intake: >/= 8 hours ASA classification: III Emergent: no Anesthetic plan: proceed Anesthesia type and monitoring: general GIVS and standard monitoring Results Review: All pre-operative results and documents have been reviewed as part of the pre-operative evaluation. HTN, BMI 45, hx gastric sleeve w large wt loss, pt active w gym 3-5 x week, no cp or sob w cardio. Informed Consent: The patient's anesthetic plan and its attendant risks and benefits were discussed with the patient/family/POA. Questions were solicited and answers provided to the satisfaction of the patient/family/POA.
[2024-12-24 07:17] LABS: Hematocrit 35.4 % (37.0-47.0); Hemoglobin 11.0 g/dL (12.0-15.0)
--- NOTE | 2024-12-24 07:20 | PM.IMHP ---
H&P: HPI History of Present Illness Date/Time: 12/24/24 07:20 Chief Complaint: Endometrial lesion Narrative: This patient is a 39-year-old female with endometrial lesion. We have agreed to perform hysteroscopy D&C with possible polypectomy. She understands the risks, benefits, and alternatives. She has completed informed consent process is ready to proceed. The patient understands the details of the procedure. The procedure has been explained in detail. She understands the risks. She understands that injuries may occur that result in hospitalization, more surgery, and severe illness. She understands risk of hemorrhage and infection. She denies any chest pain or shortness of breath. She denies any nausea, vomiting, fever, chills. Review of Systems Review of Systems: All systems reviewed & are unremarkable except as noted in HPI and below Constitutional: Constitutional: Denies chills, Denies fatigue, Denies fever(s) and Denies weakness Eyes: Eyes: Denies blurry vision, Denies change in vision, Denies loss of peripheral vision, Denies loss of vision, Denies other visual disturbances and Denies eye pain ENT: Denies vertigo, Denies dizziness, Denies hearing loss, Denies mouth pain, Denies nasal obstruction, Denies neck mass and Denies neck pain Cardiovascular: Cardiovascular: Denies chest pain, Denies diaphoresis, Denies syncope, Denies leg edema and Denies dyspnea Respiratory: Respiratory: Denies chest congestion, Denies cough, Denies hemoptysis, Denies dyspnea and Denies wheezing Gastrointestinal: Gastrointestinal: Denies abdominal pain, Denies constipation, Denies diarrhea, Denies nausea and Denies vomiting Genitourinary: Genitourinary: Denies hematuria, Denies change in libido, Denies nocturia, Denies genital lesions, Denies flank pain and Denies urinary urgency Musculoskeletal: Musculoskeletal: Denies abnormal gait, Denies back pain, Denies myalgias, Denies arthralgias, Denies joint swelling, Denies muscle weakness and Denies neck pain Integumentary/Breasts: Skin/Breast: Denies swelling, Denies breast pain, Denies breast mass, Denies dry skin, Denies nipple discharge, Denies unusual bruising and Denies jaundice Neurologic: Denies Neuro-related abnormal movements, Denies Abnormal speech present, Denies abnormal gait, Denies behavioral changes, Denies confusion, Denies vertigo, Denies dizziness, Denies syncope, Denies loss of vision, Denies memory loss, Denies convulsions and Denies weakness Psychiatric: Psychiatric: Denies abnormal sleep pattern, Denies behavioral changes, Denies change in libido, Denies confusion, Denies depression, Denies anhedonia and Denies memory loss Endocrine: Endocrine: Reports no additional endocrine complaints, Denies change in libido and Denies fatigue Hematologic/Lymphatic: Hematologic/Lymphatic: Reports no additional hematologic/lymphatic complaints Allergic/Immunologic: Allergic/Immunologic: Reports no additional allergic/immunologic complaints and Denies wheezing PMFSH Past Medical History Medical History 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 History of UTI Right knee DJD Right knee pain Anxiety Anemia GERD (gastroesophageal reflux disease) HTN (hypertension) Surgical History Surgical History H/O LEEP Family History Family History Father , Lymphoma Lymphoma Mother , Related to kidney failure and CHF Diabetes mellitus Acute myocardial infarction Unknown Heart disease Hypertension Social History Social History Social History: Caffeine-none Smoking packs per day: 0.25 Smoking cigarettes per day: 5.0 Years smoked: 20 Smoking pack-years: 5.00 Smoking status: Former smoker Tobacco type: e-cigarettes/vaping Second hand tobacco smoke exposure: No Smoking end date: 09/02/23 Additional smoking assessment comments: 2023 LAST USE Alcohol intake: former Alcohol use details: LAST USE 2 YRS Substance use: former Substance use type: crack/cocaine and methamphetamine Other substance usage details: LAST USE 2 YRS AGO Living arrangements: alone Occupation/Education: occupation Gender identity (if verbalized by the patient): Female Sexual Orientation (if Verbalized by the Patient): Straight or Heterosexual Meds Home Medications and Allergies Home Medications ?Medication ?Instructions ?Recorded ?Confirmed ?Type ferrous sulfate 325 mg (65 mg 325 mg PO DAILY 02/28/20 12/11/24 History iron) tablet ibuprofen 800 mg tablet 800 mg PO TID PRN pain #30 tabs 02/28/20 12/11/24 Rx buspirone 10 mg tablet 15 mg PO HS 10/11/23 12/11/24 History hydroxyzine HCl 50 mg tablet 50 mg PO BID 10/11/23 12/11/24 History omeprazole 40 mg capsule,delayed 40 mg PO DAILY 10/11/23 12/11/24 History release prazosin 2 mg capsule 2 mg PO TID 10/11/23 12/11/24 History topiramate 100 mg tablet 100 mg PO DAILY 10/11/23 12/11/24 History multivitamin 1 tablet PO DAILY 01/23/24 12/11/24 History Allergies Allergy/AdvReac Type Severity Reaction Status Date / Time No Known Allergies Allergy Verified 12/24/24 07:16 Vital Signs Vital Signs - 24 hr 12/24/24 06:45 Temperature 97.1 F L Pulse Rate 64 Blood Pressure 135/96 H Pulse Oximetry 100 Oxygen Delivery Room Air Exam Const: General: cooperative, healthy appearing, comfortable and no acute distress Orientation/consciousness: oriented to person, oriented to place and oriented to time HENMT: Head: normal to inspection Ears: external ears normal Face/Nose/Sinus: Normal external nose present and normal facial exam Face and sinus: normal facial exam Eyes: General: appearance normal, both eyes and all related structures Neck: Neck: normal visual inspection, trachea midline and supple Resp: Auscultation: clear to auscultation bilaterally, no crackles, no rales, no rhonchi and no wheezes Cardio: Rate: regular rate Rhythm: regular rhythm Heart sounds: no click, no murmurs and no rubs GI: GI Palp: No abdominal tenderness, No Soft to palpation, No Tenderness to palpation present (GI) and No Palpable mass present Auscultation: normal bowel sounds Skin: General skin exam: normal color and no rashes or lesions noted Neuro: General: oriented to person, oriented to place and oriented to time Extrem: General: normal to inspection, no joint enlargement, no clubbing, cyanosis or edema, no pedal edema and no calf tenderness Psych: Appearance: grossly normal Mental Status: mental status grossly normal Speech and movement: Normal speech and movement present H&P: Results Labs Labs: Short CBC 12/24/24 Range/Units 06:32 Hgb 11.0 L (12.0-15.0) g/dL Hct 35.4 L (37.0-47.0) % Assessment and Plan Assessment and plan (1) Endometrial polyp: Code(s): N84.0 - Polyp of corpus uteri Status: Acute Plan This patient is a 39-year-old female with endometrial lesion. We have agreed to perform hysteroscopy D&C with possible polypectomy. She understands the risks, benefits, and alternatives. She has completed informed consent process is ready to proceed.
--- NOTE | 2024-12-24 07:25 | WPDHPUPDATE1 ---
History and Physical Update Update Date/Time: 12/24/24 07:25 History and Physical has been reviewed, including an updated exam of the patient. There are NO changes in the patient's condition. Risks, benefits, and alternatives have been discussed and questions answered. Patient agrees to proceed with procedure.
--- NOTE | 2024-12-24 07:57 | S_PTH ---
PATIENT: Lay Seay LOC: [facility] U#:[id number] AGE/SX: 39/F ROOM: RE12/24/[address]: Ran Gonzalez MD : [id number] BED: DIS: 12/24/2024 SPEC #: [id number] RECD: 12/24/24 08:44 STATUS: PURA REMerry #: [id number] DEWEY: 12/24/24 07:[address]: Ran Gonzalez DEPT: [facility] Surgical RECD BY: Marissa Humphreys ENTERED: 12/24/24 08:44 SP TYPE: Surgical OTHR DR: Minh Donohue MD Tissues: A - Polyp B - Endocervical Curettings C - Endometrial Curettings Procedures: Hematoxylin and Eosin Stain Gross and Microscopic Level 4
[2024-12-24 08:12] VITALS: BP 135/100; PULSE 98; RESP 20; TEMP 36.4; O2SAT 100
[2024-12-24] MEDS: ONDANSETRON INJ 4 MG/2 ML VIAL IV PUSH (08:20)
[2024-12-24 08:25] VITALS: BP 142/92; PULSE 84; RESP 20; O2SAT 98
[2024-12-24 08:35] VITALS: BP 138/90; PULSE 80; RESP 20; O2SAT 98
[2024-12-24 08:38] VITALS: BP 151/100; PULSE 82; RESP 20
--- NOTE | 2024-12-24 08:39 | W.PM.PROC2 ---
Procedure Note - Detailed Date of Procedure 12/24/24 Pre-op Diagnosis Endometrial Polyp Post-op Diagnosis Same Procedure Performed Hysteroscopy D&C Surgeon Ran Gonzalez MD Anesthesia MAC Indications abnormal uterine bleeding Findings Endocervical polyp projecting out of the cervix, moderate thickened endometrium, normal-appearing endometrium after curettage and normal endo cervix. Normal vulva vagina and ectocervix Description of Procedure the patient was taken the operating room. She was prepped and draped in the dorsal lithotomy position after induction of mac anesthesia. A speculum was placed in the vagina. The cervix was grasped with a tenaculum. Endocervical polyp could be grasped with ring forceps and avulsed. The cervix was dilated about 1 cm. The hysteroscope was inserted. The intrauterine cavity and endocervix were evaluated. Hysteroscope was withdrawn. A medium-size curette was used to curettage all the surfaces were within the endometrial cavity. the sample was collected on Telfa and sent to pathology. The hysteroscope was reinserted and the above findings were noted. Patient tolerated the procedure well. The speculum and tenaculum were removed. She was taken recovery room in stable condition. Sponge lap and needle counts were correct x2. Estimated Blood Loss 40 Drains No Packing No Pathology Yes Complications No immediate complications Condition Stable Disposition PACU
[2024-12-24 09:00] VITALS: BP 152/104; PULSE 67; RESP 20
== END 2024-12-24 09:00 | disposition home or self-care (01) ==
PROVIDERS: Anesthesiology; PCP Internal Medicine; Visit Provider Obstetrics & Gynecology
PROC: 0U5B8ZZ Destruction of Endometrium, Via Natural or Artificial Opening Endoscopic (ICD-10-PCS; CPT 58563; principal; 2024-12-24 07:30)
DX: N84.1 Polyp of cervix uteri (principal); R93.89 Abnormal findings on diagnostic imaging of other specified body structures; I10 Essential (primary) hypertension; K21.9 Gastro-esophageal reflux disease without esophagitis; D64.9 Anemia, unspecified; F41.9 Anxiety disorder, unspecified; M17.0 Bilateral primary osteoarthritis of knee; E66.9 Obesity, unspecified; Z68.42 Body mass index [BMI] 45.0-49.9, adult; Z79.1 Long term (current) use of non-steroidal anti-inflammatories (NSAID); Z98.890 Other specified postprocedural states; Z98.84 Bariatric surgery status; Z87.891 Personal history of nicotine dependence; Z80.7 Family history of other malignant neoplasms of lymphoid, hematopoietic and related tissues; Z82.49 Family history of ischemic heart disease and other diseases of the circulatory system
CPT/HCPCS: 58558; 36415; 85014; 85018; 88305; A9270; J2003; J2004; J2250; J2405; J2704; J3010; J7120